=== PATIENT | female | born 1995 | race Caucasian/White ===

== ENCOUNTER → 2023-03-20 13:52 | Outpatient (BNVA) | payer OTHER, SELFPAY | PROVIDERS: Visit Provider Physician Assistant Surgical ==

== ENCOUNTER 2023-04-21 13:40 | Outpatient (AMB) | payer OTHER, SELFPAY ==
[2023-04-21 13:44] VITALS: BP 130/63; PULSE 80; TEMP 36.5; O2SAT 95; BMI 57.0
--- NOTE | 2023-04-21 13:44 | A.OFFVIS_ITS ---
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 Her goal is to be albe to do all of the activities that she wants to. She reports first being concerned about her weight during college. She has tried multiple methods of weight loss including different types of diets without permanent results. 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 Highest weight 396 lbs. She wakes at: 8am bed at 12- 1am Breakfast:skips 3d/ week. 10am - Premier shake OR sweet crackers. water Lunch: 1:30 pm - (food from school cafeteria) chicken or fish, small amt of vegetables with carb. water Dinner: 7pm - (from school cafterira) similar to lunch - or a sandwich. water After dinner: cheese and crackers, allmonds or yogurt Other snacks: no snacks during the day Liquids:No soda, no fruit juice Alcohol intake:once per month, 5 -6 drinks (wine or beer) tobacco:none, marijuana: none Exercise: walks dog on leash. has gym access at school. Last mammogram: never Last pap smear: up to date control method: condoms HARLEY: 0 ESS:5 GERD15: QOL:83 PFSH Surgical History Hx of wisdom tooth extraction Family History (Updated 03/20/23 @ 14:21 by Monica Sulewski, RMA) Mother Thyroid disease Father Cancer High cholesterol Hypertension Diabetes Sister No problems noted. Sister No problems noted. Brother Cirrhosis Social History Alcohol intake: current Alcohol intake frequency: a few times a month Patient Tobacco Use Status: Never used Tobacco Physical Exam Vital Signs: Last Vital Signs Temp 97.7 F 04/21/23 13:44 Pulse 80 04/21/23 13:44 BP 130/63 04/21/23 13:44 Pulse Ox 95 04/21/23 13:44 Oxygen Delivery Method Room Air 04/21/23 13:44 BMI result Body Mass Index 57.0 Const General: cooperative, no acute distress and well developed Nutritional Appearance: obese Orientation/consciousness: patient oriented x3 HEENT Head: Yes normal to inspection Neck Neck: Yes normal visual inspection Thyroid: Thyroid normal Resp Effort & Inspection: normal respiratory effort Auscultation: clear to auscultation bilaterally Cardio Rate: regular rate Rhythm: regular rhythm Heart sounds: S1 normal heart sound present, S2 normal heart sound present and no murmurs GI Inspection: No distended and Yes obesity Palpation (GI): Soft to palpation, nontender and no guarding Skin General skin exam: no rashes or lesions noted and other (warm and dry) Wounds: no wounds Hair: normal Neuro General: patient oriented x3 Extrem General: Yes no pedal edema and Yes no calf tenderness Psych Attitude: cooperative Thought process: Normal thought process present Thought content: Normal thought content present Insight: Good insight present (Psych) Judgement: Good judgement present (Psych) Assessment & Plan Assessment & Plan (1) Morbid obesity: Code(s): E66.01 - Morbid (severe) obesity due to excess calories Plan: This is a 27 yo woman with morbid obesity who will start SWL program to prepare for bariatric surgery. Blood work, h pylori , CXR, ECG, Abd ULS and UGI have been ordered. She is being scheduled for RD and CLAUDIA initial consultations. She will start SWL classes and watch at 3 classes before her next appt with Courtney. 1. Adequate sleep of 7-8 hours per night discussed 2. Healthy meal plan - stop skipping meals and stop all sweetened drinks All meals/MR's need to take 20 minutes to complete 10 am - 30 gram shake 1 pm - cc or yogurt 4 pm- shake 7 pm- dinner of 6 oz lean protein, 8 oz vegetable, 1 serving fruit 10 pm - bar Exercise - Cardio 5 d week walk 2 miles in 40 minutes - check calories burned on health tracker OR LS 2 mile videos, TBP once per week The importance of avoiding and breast feeding for at least 18 months after bariatric surgery was discussed in the information session and was reinforced today. Pt will purchase body composition analyzer (recommended list given to patient) and weight herself weekly. Next appt with me in 3 weeks. Text me with any questions and weekly weights. Patient is morbidly obese and is not considered stable at this time.?I spent a total of 60 minutes reviewing/updating records, examining the patient and counseling the patient on weight management as detailed above. Orders: Orders Vitamin B12 and Folate Today E66.01 - Morbid (severe) obesity due to excess calories, Z01.818 - Encounter for other preprocedural examination Comprehensive Met. Panel Today E66.01 - Morbid (severe) obesity due to excess calories, Z01.818 - Encounter for other preprocedural examination C Reactive Protein Today E66.01 - Morbid (severe) obesity due to excess calories, Z01.818 - Encounter for other preprocedural examination Ferritin Today E66.01 - Morbid (severe) obesity due to excess calories, Z01.818 - Encounter for other preprocedural examination Hemoglobin A1c Today E66.01 - Morbid (severe) obesity due to excess calories, Z01.818 - Encounter for other preprocedural examination Insulin Today E66.01 - Morbid (severe) obesity due to excess calories, Z01.818 - Encounter for other preprocedural examination IRON PROFILE Today E66.01 - Morbid (severe) obesity due to excess calories, Z01.818 - Encounter for other preprocedural examination Lipid Panel Today E66.01 - Morbid (severe) obesity due to excess calories, Z01.818 - Encounter for other preprocedural examination PTHI Today E66.01 - Morbid (severe) obesity due to excess calories, Z01.818 - Encounter for other preprocedural examination TSH reflex Free T4 Today E66.01 - Morbid (severe) obesity due to excess calories, Z01.818 - Encounter for other preprocedural examination Vitamin A Today E66.01 - Morbid (severe) obesity due to excess calories, Z01.818 - Encounter for other preprocedural examination Vitamin B1 Today E66.01 - Morbid (severe) obesity due to excess calories, Z01.818 - Encounter for other preprocedural examination Vitamin D 25-OH Total Today E66.01 - Morbid (severe) obesity due to excess calories, Z01.818 - Encounter for other preprocedural examination Zinc Today E66.01 - Morbid (severe) obesity due to excess calories, Z01.818 - Encounter for other preprocedural examination ECG 12 lead EKG Today E66.01 - Morbid (severe) obesity due to excess calories, Z01.818 - Encounter for other preprocedural examination FL upper GI w air Today E66.01 - Morbid (severe) obesity due to excess calories, Z01.818 - Encounter for other preprocedural examination Complete Blood Count Auto Diff Today E66.01 - Morbid (severe) obesity due to excess calories, Z01.818 - Encounter for other preprocedural examination H Pylori Breath Test Today E66.01 - Morbid (severe) obesity due to excess calories, Z01.818 - Encounter for other preprocedural examination US abdomen comp w elastography Today E66.01 - Morbid (severe) obesity due to excess calories, Z01.818 - Encounter for other preprocedural examination XR chest 2V Today E66.01 - Morbid (severe) obesity due to excess calories, Z01.818 - Encounter for other preprocedural examination Referrals Behavioral Health Referral E66.01 - Morbid (severe) obesity due to excess calories, Z01.818 - Encounter for other preprocedural examination Nutrition/Dietitian Referral E66.01 - Morbid (severe) obesity due to excess calories, Z01.818 - Encounter for other preprocedural examination Coding Level of Care Code New Pt Level 5 (10472) Diagnoses Morbid obesity E66.
== END 2023-04-21 14:51 | disposition home or self-care (01) ==
PROVIDERS: Visit Provider Physician Assistant
DX: E66.01 Morbid (severe) obesity due to excess calories (principal); Z68.43 Body mass index [BMI] 50.0-59.9, adult
CPT/HCPCS: 99205

== ENCOUNTER 2023-04-21 13:40 | Outpatient (REF) | payer OTHER, SELFPAY ==
[2023-04-26 12:42] LABS: H Pylori Breath Test Negative (Negative)
== END 2023-04-21 13:41 | disposition home or self-care (01) ==
LOC: HO.LNP 13:40
PROVIDERS: Visit Provider Physician Assistant
DX: Z01.818 Encounter for other preprocedural examination (principal); E66.01 Morbid (severe) obesity due to excess calories
CPT/HCPCS: 83013; 99211

== ENCOUNTER 2023-05-11 09:17 | Outpatient (REF) | payer OTHER, SELFPAY ==
--- NOTE | ~2023-05-11 | XR_ITS ---
EXAMINATION: XR CHEST CLINICAL INFORMATION: Morbid obesity. COMPARISON: None available. TECHNIQUE: 2 views of the chest were obtained. FINDINGS: No significant abnormality is noted involving the heart, lungs, mediastinum, bony thorax or soft tissues. XR/XR chest 2V IMPRESSION: Unremarkable examination.
--- NOTE | 2023-05-11 09:27 | ECG_ITS ---
Test Reason : E66.01 Blood Pressure : / mmHG Vent. Rate : 081 BPM Atrial Rate : 081 BPM P-R Int : 162 ms QRS Dur : 084 ms QT Int : 362 ms P-R-T Axes : 036 004 028 degrees QTc Int : 420 ms Normal sinus rhythm Normal ECG No previous ECGs available Referred By: Grace Porter Electronically Signed By:CHICO BECKMAN
[2023-05-11 09:41] LABS: MANUAL DIFF FLAG NO
[2023-05-11 10:20] LABS: Basophils Percent Auto 0.3 % (0-2); Eosinophils Absolute Auto 0.1 X10*3/uL (0.0-0.4); Eosinophils Percent Auto 0.8 % (0-4); Hematocrit 40.5 % (37.0-47.0); Hemoglobin 12.9 g/dl (12.0-16.0); Imm Gran Abs Auto 0.02 X10*3/uL (0.00-0.03); Imm Gran Pct Auto 0.3 % (0.0-0.4); Lymphocytes Absolute Auto 3.1 X10*3/uL (1.2-4.9); Mean Corpuscular HGB Conc 31.9 g/dl (31.0-35.0); Mean Corpuscular Hemoglobin 25.9 pg (27.0-33.0); Mean Corpuscular Volume 81.2 fL (80.0-98.0); Mean Platelet Volume 10.7 fL (9.4-12.3); Monocytes Absolute Auto 0.5 X10*3/uL (0.1-1.2); Monocytes Percent Auto 7.1 % (2-11); Neutrophils Absolute Auto 2.8 x10*3/uL (2.0-8.3); Neutrophils Percent Auto 43.5 % (45-73); Platelet Count 332 X10*3/uL (160-400); Red Blood Count 4.99 X10*6/uL (4.20-5.50); Red Cell Distribution Width 13.7 % (11.0-16.0); White Blood Count 6.5 X10*3/uL (4.8-10.8)
[2023-05-11 10:59] LABS: Alanine Aminotransferase 28 U/L (0-31); Albumin Level 4.1 g/dL (3.5-5.0); Alkaline Phosphatase 104 U/L (39-117); Anion Gap 18 (12-20); Aspartate Amino Transferase 21 U/L (5-31); Bilirubin Total 0.4 mg/dL (0.0-1.0); Blood Urea Nitrogen 19 mg/dL (9-16); Calcium 9.4 mg/dL (8.4-10.2); Carbon Dioxide 18 mmol/L (22-29); Chloride 106 mmol/L (96-108); Cholesterol 201 mg/dL; Estimated Glomerular Filt Rate > 60; Glucose Random 92 mg/dL (60-115); HDL Cholesterol 37 mg/dL; Iron 79 mcg/dL (30-160); LDL Cholesterol Calculated 126 mg/dl; Percent Iron Saturation 23 % (15-50); Sodium 138 mmol/L (135-145); Total Iron Binding Capacity 350 mcg/dL (228-428); Total Protein 7.9 g/dL (6.5-8.0); Triglycerides 193 mg/dL; Unsaturated Iron Binding 271 ug/dL
[2023-05-11 11:08] LABS: Ferritin 72 ng/mL (10-122); Insulin 16 uU/mL (2-29); TSH reflex Free T4 5.07 uIU/mL (0.32-4.0); Vitamin D 25-OH Total 27.5 ng/mL (>30)
[2023-05-11 11:09] LABS: Estimated Average Glucose 94 mg/dL; Hemoglobin A1c % 4.9 %
[2023-05-11 11:16] LABS: Folate 10.8 ng/mL (> or = 4.0); Vitamin B12 523 pg/mL (200-900)
[2023-05-11 11:39] LABS: Free T4 (Free Thyroxine) 0.83 ng/dL (0.71-1.85)
[2023-05-12 19:04] LABS: Calcium (PTHI) 9.2 mg/dL (8.6-10.2); PTHI 72 pg/mL (16-77)
[2023-05-14 01:58] LABS: Zinc 81 mcg/dL (60-130)
[2023-05-14 16:13] LABS: Vitamin B1 7 nmol/L (8-30)
[2023-05-15 03:03] LABS: Vitamin A 56 mcg/dL (38-98)
== END 2023-05-11 09:18 | disposition home or self-care (01) ==
LOC: HO.XRAY 09:17
PROVIDERS: Visit Provider Physician Assistant
DX: Z01.818 Encounter for other preprocedural examination (principal); E66.01 Morbid (severe) obesity due to excess calories
CPT/HCPCS: 36415; 71046; 80053; 80061; 82306; 82607; 82728; 82746; 83036; 83525; 83540; 83970; 84425; 84439; 84443; 84590; 84630; 85025; 86140; 93005

== ENCOUNTER → 2023-05-11 09:27 | Outpatient (BNV) | payer OTHER, SELFPAY | PROVIDERS: Visit Provider Internal Medicine | DX: E66.01 Morbid (severe) obesity due to excess calories (principal) | CPT/HCPCS: 93010 ==

== ENCOUNTER 2023-05-12 08:30 | Outpatient (REF) | payer OTHER, SELFPAY ==
--- NOTE | ~2023-05-12 | US_ITS ---
EXAMINATION: US COMPLETE ABDOMEN WITH LIVER ELASTOGRAPHY CLINICAL INFORMATION: Morbid obesity COMPARISON: None available. TECHNIQUE: Real-time imaging of the abdominal viscera. Noninvasive ultrasound liver fibrosis assessment is performed using Tyler ElastPQ point quantification shear wave elastography (2D-SWE) with a C5-2 MHz transducer. Multiple elastography samples are obtained. FINDINGS: PANCREAS: Normal. The visualized pancreatic head and body are normal in appearance. The remainder of the pancreas is obscured from visualization by the overlying bowel gas. ABDOMINAL AORTA: The proximal, middle, and distal aortic segments are normal in caliber. INFERIOR VENA CAVA: Visualized portions are normal. LIVER: There is hepatomegaly present with vertical span of the right lobe of 20 cm. There is diffuse increased echogenicity consistent with fatty infiltration/hepatocellular disease. The right lobe measures 20 cm in length. The left lobe measures 14 cm in length. Portal flow is hepatopedal Shear wave liver elastography median stiffness is 1.64 m/s (reference: normal median stiffness is 1.3 m/s or less). IQR/median stiffness to assess sampling precision is 0.09 (reference: good quality data set is IQR/median stiffness of 0.15 or less). GALLBLADDER: Normal. The gallbladder is physiologically distended without evidence of stones, sludge, polyps, wall thickening or pericholecystic fluid. COMMON BILE DUCT: Common bile duct is not well seen due to body habitus and overlying bowel gas RIGHT KIDNEY: Normal. No hydronephrosis. No renal calculi or focal parenchymal lesions. The kidney measures 13 cm in maximum dimension. LEFT KIDNEY: Normal. No hydronephrosis. No renal calculi or focal parenchymal lesions. The kidney measures 10 cm in maximum dimension. SPLEEN: Normal. The spleen measures 11.5 cm in maximum dimension. FREE FLUID: None. US/US abdomen comp w elastography IMPRESSION: 1. Increased echogenicity consistent with fatty infiltration/hepatocellular disease of the liver. 2. Liver elastography: In the absence of other known clinical signs, measurements rule out compensated advanced chronic liver disease. If there are known clinical signs, further testing may be needed for confirmation. REFERENCE: Society of Radiologists in Ultrasound Liver Stiffness Thresholds (2020): LIVER STIFFNESS THRESHOLDS: *Liver Stiffness equal or less than 1.3 m/s: High probability of being normal. *Liver Stiffness less than 1.7 m/s: In the absence of other known clinical signs, rules out compensated advanced chronic liver disease. *Liver Stiffness 1.7-2.1 m/s: Suggestive of compensated advanced chronic liver disease but need further test for confirmation. *Liver Stiffness over 2.1 m/s: Rules in compensated advanced chronic liver disease. *Liver Stiffness over 2.4 m/s: Suggestive of clinically significant portal hypertension. QUALITY OF DATA SET: *IQR/Median value equal or less than 0.15 implies a quality data set. *IQR/Median value over 0.15 implies a poor quality data set. SIGNIFICANT CHANGE FROM PRIOR EXAM: Significant change if liver stiffness measurement is 10% or greater from prior exam. OTHER CONSIDERATIONS: The stage of liver fibrosis may be overestimated in the setting of acute hepatitis, liver inflammation, elevated liver function tests, hepatic vascular congestion, obstructive cholestasis, non-fasting state, and infiltrative diseases such as amyloidosis and lymphoma. In some patients with NAFLD, the liver stiffness thresholds for compensated advanced chronic liver disease may be lower. In causes other than viral hepatitis and NAFLD, liver stiffness thresholds are not well established.
== END 2023-05-12 08:31 | disposition home or self-care (01) ==
LOC: HO.US 08:30
PROVIDERS: Visit Provider Physician Assistant
DX: Z01.818 Encounter for other preprocedural examination (principal); E66.01 Morbid (severe) obesity due to excess calories
CPT/HCPCS: 76705; 76981; 97802

== ENCOUNTER 2023-05-12 14:24 | Outpatient (AMB) | payer OTHER, SELFPAY ==
--- NOTE | 2023-05-12 14:19 | A.OFFVIS_ITS ---
Intake Intake Visit Reasons: (TV) Initial Nutrition [facility] Floor Framer Required: No Allergies No Known Allergies Allergy (Verified 04/21/23 13:48) HPI Nutrition Presentation Reason for consult elevated BMI Diet Assmnt Details Hasnt been consistent with her nutrition plan. Had a lot of groceries in the fridge and didn't want them to be wasted. She was trying to eat during the day and not skip meals, and make healthy choices. started her plan on May 07 and bought the shakes. Using 2 premier or farilife shakes, 1 Quest bar, 1 malay yogurt , 1 meal Exercise: 3-4x per week [facility] online classes: 01/17 completed , scoring well Dietary counseling reduction Who buys your food self Who prepares/cooks your food self Meal frequency regular: lunch ( huge meal ) and snacks and never: breakfast and dinner Lifestyle Food frequency Grains/pasta/breads/cereal (carbs): daily and Desserts/sweets: occasionally Diagnosis Nutrition problem #1 overweight/obesity As related to (etiology) #1 excess energy intake and physical inactivity As evidenced by (sign/symptom) #1 high BMI Monitoring/Goals Nutrition problem monitoring total energy intake, level of knowledge/skill, total PRO intake, total CHO intake and weight Outcome progress progressing Learning/Education Readiness to learn good Stages of change action Educational materials provided Yes Most Recent Diabetes Results: Cholesterol 201 mg/dL 05/11/23 HDL Cholesterol 37 mg/dL 05/11/23 Triglycerides 193 mg/dL 05/11/23 Creatinine 0.76 mg/dL (0.5-1.4) 05/11/23 Blood Urea Nitrogen 19 mg/dL (9-16) H 05/11/23 Sodium 138 mmol/L (135-145) 05/11/23 Potassium 4.0 mmol/L (3.3-5.1) 05/11/23 Chloride 106 mmol/L (96-108) 05/11/23 Carbon Dioxide 18 mmol/L (22-29) L 05/11/23 Calcium 9.4 mg/dL (8.4-10.2) 05/11/23 AST 21 U/L (5-31) 05/11/23 ALT 28 U/L (0-31) 05/11/23 Total Protein 7.9 g/dL (6.5-8.0) 05/11/23 Albumin 4.1 g/dL (3.5-5.0) 05/11/23 PFSH Surgical History Hx of wisdom tooth extraction Family History (Updated 03/20/23 @ 14:21 by RYLAND Amador) Mother Thyroid disease Father Cancer High cholesterol Hypertension Diabetes Sister No problems noted. Sister No problems noted. Brother Cirrhosis Social History Alcohol intake: current Alcohol intake frequency: a few times a month Patient Tobacco Use Status: Never used Tobacco Assessment & Plan Assessment & Plan (1) Morbid obesity: Code(s): E66.01 - Morbid (severe) obesity due to excess calories Patient Instructions: has been only following her plan for a few days, no changes made. she will follow up 06/17 2pm Telehealth Telehealth Location of provider rendering services: practice address Location of patient: address on file Patient Identification confirmed using: Name, : Yes Telehealth method: voice only Patient verbally consented to treatment: Yes Patient verbally consented to billing insurance company: Yes Patient informed of any privacy concerns related to visit: Yes Minutes spent on Phone/Video with Pt.: 30 Coding Level of Care Code Nutr Indiv Intake (49662) Diagnoses Morbid obesity E66.01 Time Spent (min) 30
== END 2023-05-12 15:00 | disposition home or self-care (01) ==
LOC: HO.HBS 14:24
PROVIDERS: Visit Provider Dietitian, Registered
DX: E66.01 Morbid (severe) obesity due to excess calories (principal)

== ENCOUNTER 2023-05-14 15:28 | Outpatient (AMB) | payer OTHER, SELFPAY ==
--- NOTE | 2023-05-14 15:31 | MHC.OFFVISWM ---
Intake VS Expanded 05/14/23 15:37 Height 5 ft 7 in Weight 259 lb BMI 40.6 BP 138/74 Blood Pressure Location Rt brachial Blood Pressure Position Sitting Pulse 90 Pulse Source Pulse Oximeter Temp 97.0 F Temperature Source Temporal Artery Scan Pulse Oximetry 96 Oxygen Delivery Method Room Air Body Fat 188.2 Body Fat Percentage 52.5 Free Fat Mass 170.6 Muscle Mass 162.0 Visceral Mass 18.0 Water Mass 122.6 BMR 2,548 Intake Visit Reasons: (OV) F/U SWL Allergies No Known Allergies Allergy (Verified 05/14/23 15:36) HPI HPI Comments History of Present Illness Details This is the patients second appt for SWL. Starting weight was 364 lbs on 04/21/23, started meal plan 2 weeks later. TBWL is lbs or % TBWL. Meal plan: started 1 week ago. wakes up at 6am 8am - Premier or Fairlife shake - over 30 minutes 10- 10:30 am- Quest bar 12:30 pm - shake 3pm -was having almonds - now has yogurt or cc 6:30 pm- chicken with vegetables 8:30 - cc Exercise plan:now 4 d/wk LS 2 miles over 300 calories only once. Walking - 500 calories. Pre op work up completed as follows: SWL classes - 01/17 appts - Sachi 05/22 appts - follow up 06/17 H pylori -negative Labs - TSH 5----, free T4 normal , willcontact PCP CXR - not read yet ECG - normal ULS - fatty liver R 20/L 14 - hepatomegaly UGI - 06/29 [facility] Surgical History Hx of wisdom tooth extraction Family History Mother Thyroid disease Father Cancer High cholesterol Hypertension Diabetes Sister No problems noted. Sister No problems noted. Brother Cirrhosis Social History Alcohol intake: current Alcohol intake frequency: a few times a month Patient Tobacco Use Status: Never used Tobacco Assessment & Plan Assessment & Plan (1) Morbid obesity: Code(s): E66.01 - Morbid (severe) obesity due to excess calories Plan: TBWL 5 lb sover the last week. She has made many changes and is still adjusting to her new meal plan. No chnages made. We discussed how after awhile she will decrease her MR's per day. Exercise - now LS 2 miles 3 d/week(she rock more calories and fat with this) and walking at least 2 d/week All upcoming appts reviewed, next appt with me in 3 weeks. Patient is morbidly obese and is not considered stable at this time. I spent 30 minutes in total with patient reviewing/updating records, examining the patient and counseling the patient on weight management as detailed above. (2) Steatosis, liver: Code(s): K76.0 - Fatty (change of) liver, not elsewhere classified Coding Level of Care Code Est Pt Level 4 (87230) Diagnoses Morbid obesity E66.01 Steatosis, liver K76.0
[2023-05-14 15:37] VITALS: BP 138/74; PULSE 90; TEMP 36.1; O2SAT 96; BMI 40.6
== END 2023-05-14 16:09 | disposition home or self-care (01) ==
PROVIDERS: Visit Provider Physician Assistant
DX: E66.01 Morbid (severe) obesity due to excess calories (principal); K76.0 Fatty (change of) liver, not elsewhere classified
CPT/HCPCS: 99214

== ENCOUNTER → 2023-05-14 15:28 | Outpatient (BNVA) | payer OTHER, SELFPAY | PROVIDERS: Visit Provider Physician Assistant ==

== ENCOUNTER 2023-06-08 15:00 | Outpatient (AMB) | payer OTHER, SELFPAY ==
--- NOTE | 2023-06-08 14:59 | A.OFFVIS_ITS ---
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 Was hungry at first , but no longer. TBWL 15 lbs 4.1%. Meal plan: 8:30 am - shake 12:30 pm - protein and veg 3 -4 pm - protein bar 6:30 - shake Exercise - one week did not exercise - and only lost 2 lbs. LS 2 miles - 2 d/week. Walks for 45 minutes about 2.5 miles. Pre op work up completed as follows: [facility] classes -? 01/17 appts ? - Sachi 05/22 ? - no appt yet, rescheduled for 06/17 RD appts? - follow up 06/17 H pylori -negative Labs - TSH 5, free T4 normal , will contact PCP, now waiting for appt. CXR - normal ECG - normal ULS - fatty liver R 20/L 14 - hepatomegaly UGI - 06/29 PFSH Surgical History Hx of wisdom tooth extraction Family History Mother Thyroid disease Father Cancer High cholesterol Hypertension Diabetes Sister No problems noted. Sister No problems noted. Brother Cirrhosis Social History Alcohol intake: current Alcohol intake frequency: a few times a month Patient Tobacco Use Status: Never used Tobacco Assessment & Plan Assessment & Plan (1) Morbid obesity: Code(s): E66.01 - Morbid (severe) obesity due to excess calories Plan: Progressing well with 15 lbs or 4% TBWL lost. No changes needed to meal plan. 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 We discussed that she runs the risk of weight gain during that time. Will continue this conversation with her. Next appt with me in 3 weeks, all upcoming appts reviewed with patient. Patient is still morbidly obese and is not considered stable at this time. I spent 30 minutes in total speaking with the patient via video conference counseling , reviewing records and charting in patients chart. . (2) Steatosis, liver: Code(s): K76.0 - Fatty (change of) liver, not elsewhere classified Telehealth Telehealth Location of provider rendering services: practice address Location of patient: address on file Patient Identification confirmed using: Name, : Yes Telehealth method: video Patient verbally consented to treatment: Yes Patient verbally consented to billing insurance company: Yes Patient informed of any privacy concerns related to visit: Yes Coding Level of Care Code Tele Est Pt Level 4 (04126) Diagnoses Morbid obesity E66.01 Steatosis, liver K76.0
[2023-06-08 15:04] VITALS: BMI 54.7
== END 2023-06-08 15:25 | disposition home or self-care (01) ==
LOC: HO.HBS 15:21
PROVIDERS: Visit Provider Physician Assistant
DX: E66.01 Morbid (severe) obesity due to excess calories (principal); Z68.43 Body mass index [BMI] 50.0-59.9, adult; K76.0 Fatty (change of) liver, not elsewhere classified
CPT/HCPCS: 99214

== ENCOUNTER → 2023-06-08 15:00 | Outpatient (BNVA) | payer OTHER, SELFPAY | PROVIDERS: Visit Provider Physician Assistant ==

== ENCOUNTER 2023-06-17 12:00 | Outpatient (AMB) | payer OTHER, SELFPAY ==
--- NOTE | 2023-06-17 12:10 | A.OFFWM_ITS ---
Intake Intake Visit Reasons: VIDEO BH Intake Allergies No Known Allergies Allergy (Verified 05/14/23 15:36) PFSH Surgical History Hx of wisdom tooth extraction Family History Mother Thyroid disease Father Cancer High cholesterol Hypertension Diabetes Sister No problems noted. Sister No problems noted. Brother Cirrhosis Social History Alcohol intake: current Alcohol intake frequency: a few times a month Patient Tobacco Use Status: Never used Tobacco Behavioral Health Assessment Weight Management Therapy Therapy Notes Details PT is a 27 year old, female, who presents for initial behavioral health assessment as part of surgical weight-loss program. PT denied any history of serious or complex mental health issues and /or past hospitalization/crisis for behavioral health. Denies any safety concerns around SI and/or self-other harm, also there is no history of substance use reported. There is also no evidence for stress/emotional-eating, and scores from BES suggest low risk for binge eating behavior. PHQ- scores also showed no active symptoms/concerns with depression. Mental status exam is withing normal limits, suggesting person's functioning is not impaired. At this time patient is cleared from the behavioral health standpoint but will be seen again for support. Presenting Concerns Referral Source [facility]MP Provider. PT sees Grace NELSON Reason for referral Completion of behavioral health assessment as part of process for weight-loss surgery. Precipitating Event Obesity. When Covid happened she got concerned as she was in a higher risk due to her weight. 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 No Satisfied with current living situation? Yes Comments Been in this current living situation for about 2 and a haldf years. Food/Weight/Diet Expectations of change PT reports she doesn't have a number on mind in terms of how much she wants to weight. She wants to be healthy and able to do things. History/Relationship with food Pt denies any concerns related to emotional eating. She believes her issues is skipping meals and then having only 1 big meals or eating very late, not really having steady meal schedule. Example of meals before starting program Breakfast: skip. Lunch: whatever was offered at the cafeteria with dessert and coffee. For example: 2 slices of pizza, some veggies, a brownie, coffee. Dinner: [place] or anything high in carbs. snacks: popcorn or a bagel with cream cheese at night. Not a soda drinker, good at drinking water. History/Relationship with weight PT reports she was at a healthy weight until about age 14, when she was 20 or 30Lbs overweight. At age 21 she was 220Lbs. In 2019 at age 24, her highest was 396Lbs, she was able to lost 20-30Lbs in 2020. History/Relationship with dieting Went to a [facility] in 2019 in [place] but didn't move forward with surgery. She has done better with diets, but struggle exercising as she doesn't enjoys exercise. For her exercise was seen as a punishment, which made it not an enjoyable activity. Binge Eating Do you frequently eat large amounts of food in short periods of time, not feeling physically hungry? No Do you feel out of control when you eat a large amount of food in a short period of time? Yes Do you eat large amounts of food rapidly and typically alone? Yes Night Eating Do you wake up at least once during the night to eat? No If you wake up in the night, do you find that it is necessary to eat something in order to fall back asleep? No Do you have little or no appetite in the morning and feel very hungry in the evening, often overeating between dinner and when you go to bed? Yes Social History Family history and relationship Pt is single, has no children. Dad in 2020, mom is alive in [place]. She has 3 siblings, she's the youngest. PT reports having good family relationships. 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 Developmental history and status None reported. Social support Mother, a sister who is a physician. Community support None reported. Mosque/Spirituality Raised as Mosque but she doesn't practice. Cultural/Ethnic information Pt is from [place]. Pt is bilingual. Legal Involvement and History Current or historical involvement with the legal system? None. Education Highest grade completed Master's degree. Preferred learning style Auditory and Written Currently enrolled in educational program? No Interested in further educational program? No Educational Interests/Skills Teaching, leadership, organized. 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 ) Wants help to find employment? No Meaningful activities Reading, watching TV. Financial Situation Describe current financial situation Comfortable and Occasional struggle Financial assistance? None Service Service? No Mental Health and Addiction Treatment Current/Past substance abuse? No Current/Past addictive behavior concerns? No Psychiatric history -PT went to therapy at age 15 for couple months due to isolation and stress, as her mom was concerned and wanted to prevent any serious issues. -Then in 2019 saw a therapist for a few months due to symptoms of depression due to high stress. -Never been in Psych meds and never hosp italized. - Denies any SI or self-harm concerns. Medical and Physical Health Summary Additional Medical History not covered in history None reported. Sexual History concerns None reported. Physical exam in the last year? No Pain Screening Current pain? Yes (Left foot pain.) Pain in the last few months? No Medications Is the patient compliant with medications? Not applicable Does the patient have Linn Guardian in place? Not applicable Does the patient use complimentary health approaches? No Trauma/Abuse History History of trauma? No Questionnaires PHQ-9 Over the last 2 weeks, how often have you been bothered by any of the following problems? 1. Little interest or pleasure in doing things: several days 2. Feeling down, depressed, or hopeless: not at all 3. Trouble falling or staying asleep, or sleeping too much: more than half the days 4. Feeling tired or having little energy: several days 5. Poor appetite or overeating: several days 6. Feeling bad about yourself - or that you are a failure or have let yourself or your family down: not at all 7. Trouble concentrating on things, such as reading the newspaper or watching television: not at all 8. Moving or speaking so slowly that other people could have noticed. Or the opposite - being so fidgety or restless that you have been moving around a lot more than usual: not at all 9. Thoughts that you would be better off or of hurting yourself in some way: not at all Total score: 5 Depression Screening Interpretation: Negative Source: Developed by Drs. Boogie Chapin, Sanam Gerard, See Nicole and colleagues, with an educational patel from [employer]. Binge Eating Scale Group 1 A. I don't feel self-conscious about my wt. or body size when I'm with others. B. I feel concerned about how I look to others, but it normally does not make me fell disappointed with myself C. I do get self-conscious about my appearance and wt. which makes me feel disappointed in myself. D. I feel very self-conscious about my wt. and frequently I feel intense shame and disgust for myself. I try to avoid social contacts because of my self- consciousness. Response Group 1: B Group 2 A. I don't have any difficulty eating slowly in the proper manner. B. Although I seem to gobble down foods, I don't end up feeling stuffed because of eating to much. C. At times, I tend to eat quickly and then, I feel uncomfortably full afterwards. D. I have the habit of bolting down my food, without really chewing it. When this happens I usually feel uncomfortably stuffed because I've eaten to much. Response Group 2: C Group 3 A. I feel capable to control my eating urges when I want to. B. I feel like I have failed to control my eating more than the average person. C. I feel utterly helpless when it comes to feeling in control of my eating urges. D. Because I feel so helpless about controlling my eating I have become very desperate about trying to get control. Response Group 3: B Group 4 A. I don't have the habit of eating when I'm bored. B. I sometimes eat when I'm bored, but often I'm able to get busy and get my mind off food. C. I have a regular habit of eating when I'm bored, but occasionally, I can use some other activity to get my mind off eating. D. I have a strong habit of eating when I'm bored. Nothing seems to help me breath the habit. Response Group 4: C Group 5 A. I'm usually physically hungry when I eat something. B. Occasionally, I eat something on impulse even though I really am not hungry. C. I have the regular habit of eating foods, that I might not really enjoy, to satisfy a hungry feeling even though physically, I don't need the food. D. Although I'm not physically hungry, I get a hungry feeling in my mouth that only seems to be satisfied when I eat a food, like sandwich, that fills my mouth. Sometimes, when I eat the food to satisfy my mouth hunger, I then spit the food out so I won't gain weight. Response Group 5: B Group 6 A. I don't feel any guilt or self-hate after I overeat. B. After I overeat, occasionally I feel guilt or self-hate. C. Almost all the time I experience strong guilt or self-hate after I overeat. Response Group 6: B Group 7 A. I don't lose total control of my eating when dieting even after periods when I overeat. B. Sometimes when I eat a forbidden food on a diet, I feel like I blew it and eat even more. C. Frequently, I have the habit of saying to myself, I've blown it now, why not go all the way, when I overeat on a diet. When that happens I eat more. D. I have a regular habit of starting a strict diets for myself but I break the diets by going on an eating binge. My life seems to be either a feast or famine. Response Group 7: C Group 8 A. I rarely eat so much food that I feel uncomfortably stuffed afterwards. B. Usually about once a month, I each such a quantity of food, I end up feeling very stuffed. C. I have regular periods during the month when I eat large amounts of food, either at mealtime or at snacks. D. I eat so much food that I regularly feel quite uncomfortable after eating and sometimes a bit nauseous. Response Group 8: B Group 9 A. My level of calorie intake does not go up very high or go down very low on a regular basis. B. Sometimes after I overeat, I will try to reduce my caloric intake to almost nothing to compensate for the excess calories I've eaten. C. I have a regular habit of overeating during the night. It seems that my routine is not to be hungry in the morning but overeat in the evening. D. In my adult years, I have had week-long periods where I practically starve myself. This follows periods when I overeat. It seems I live a life of either feast or famine. Response Group 9: B Group 10 A. I usually am able to stop eating when I want to. I know when enough is enough. B. Every so often, I experience a compulsion to eat which I can't seem to control. C. Frequently, I experience strong urges to eat which I seem unable to control, but at other times I can control my eating urges. D. I feel incapable of controlling urges to eat. I have a fear of not being able to stop eating voluntarily. Response Group 10: C Group 11 A. I don't have any problem stopping eating when I feel full. B. I usually can stop eating when I feel full but occasionally overeat leaving me feeling uncomfortably stuffed. C. I have a problem stopping eating once I start and usually I feel uncomfortably stuffed after I eat a meal. D. Because I have a problem not being able to stop eating when I want, I sometimes have to induce vomiting to relieve my stuffed feeling. Response Group 11: B Group 12 A. I seem to eat just as much when I'm with others, Family social gatherings as when I'm by myself. B. Sometimes, when I'm with other persons, I don't eat as much as I want to eat because I'm self-conscious about my eating. C. Frequently, I eat only a small amount of food when others are present, because I'm very embarrassed about my eating. D. I feel so ashamed about overeating that I pick times to overeat when I know no one will see me. I feel like a closet eater. Response Group 12: B Group 13 A. I eat three meals a day with only an occasional between meal snack. B. I eat 3 meals a day, but I also normally snack between meals. C. When I am snacking heavily, I get in the habit of skipping regular meals. D. There are regular periods when I seem to be continually eating, with no planned meals. Response Group 13: A Group 14 A. I don't think much about trying to control unwanted eating urges. B. At least some of the time, I feel my thoughts are pre-occupied with trying to control my eating urges. C. I feel that frequently I spend much time thinking about how much I ate or about trying not to eat anymore. D. It seems to me that most of my waking hours are pre-occupied by thoughts about eating or not eating. I feel like I'm constantly struggling not to eat. Response Group 14: A Group 15 A. I don't think about food a great deal. B. I have strong craving for food but they last only for brief periods of time. C. I have days when I can't seem to think about anything else but food. D. Most of my days seem to be pre-occupied with thoughts about food. I feel like I live to eat. Response Group 15: B Group 16 A. I usually know whether or not I'm physically hungry. I take the right portion of food to satisfy me. B. Occasionally, I feel uncertain about knowing whether or not I'm physically hungry. A these times it's hard to know how much food I should take to satisfy me. C. Even though I might know how many calories I should eat, I don't have any idea what is a normal amount of food for me. Response Group 16: B Binge Eating Score: 18 Score less than 17 Minimal Risk Score between 18-26 Moderate Risk Score between 27-46 High Risk Assessment & Plan Assessment & Plan (1) Eating disorder: Code(s): F50.9 - Eating disorder, unspecified Qualifiers: Eating disorder type: unspecified eating disorder Qualified Code(s): F50.9 - Eating disorder, unspecified (2) Adjustment disorder, unspecified: Code(s): F43.20 - Adjustment disorder, unspecified Qualifiers: Adjustment disorder type: unspecified type Qualified Code(s): F43.20 - Adjustment disorder, unspecified Plan PT is Cleared from the mental health standpoint. Advised to have support from the county agricultural agent and provider with food choices in order to continue having steady, well balanced meals to manage night hunger. We will f/up in a month for support with habit building. Telehealth Telehealth Location of provider rendering services: other Location of patient: address on file Patient Identification confirmed using: Name, : Yes Telehealth method: video Patient verbally consented to treatment: Yes Patient verbally consented to billing insurance company: Yes Patient informed of any privacy concerns related to visit: Yes Minutes spent on Phone/Video with Pt.: 60 Coding Level of Care Code New Pt Tele Psy Diag Cyndie ([id number]) Patient Type New Diagnoses Eating disorder, unspecified type F50.9 Eating disorder type: unspecified eating disorder Adjustment disorder, unspecified type F43.20 Adjustment disorder type: unspecified type Time Spent (min) 60
== END 2023-06-17 13:00 | disposition home or self-care (01) ==
LOC: HO.HBST 12:11
PROVIDERS: Visit Provider Counselor Mental Health
DX: F50.9 Eating disorder, unspecified (principal); F43.20 Adjustment disorder, unspecified
CPT/HCPCS: 90791

== ENCOUNTER → 2023-06-17 12:00 | Outpatient (BNVA) | payer OTHER, SELFPAY | PROVIDERS: Visit Provider Counselor Mental Health | DX: E66.9 Obesity, unspecified (principal); Z68.43 Body mass index [BMI] 50.0-59.9, adult; Z71.3 Dietary counseling and surveillance | CPT/HCPCS: 97803 ==

== ENCOUNTER 2023-06-29 08:14 | Outpatient (REF) | payer OTHER, SELFPAY ==
--- NOTE | ~2023-06-29 | FL_ITS ---
EXAMINATION: XR FLUOROSCOPY UPPER GI WITH AIR CLINICAL INFORMATION: Obesity COMPARISON: None available. TECHNIQUE: Upper GI was performed using thin and thick barium and effervescent granules FINDINGS: Esophageal motility is normal. There is mild gastroesophageal reflux. No hernia is seen. The stomach and duodenum are normal-appearing. No fold thickening, mass, ulcer or stricture. FLUOROSCOPY TIME: 21 seconds Total dose 15 mgy. 23 saved fluoroscopic images) FL/FL upper GI w air IMPRESSION: Mild gastroesophageal reflux.
== END 2023-06-29 08:15 | disposition home or self-care (01) ==
LOC: HO.XRAY 08:14
PROVIDERS: Visit Provider Physician Assistant
DX: Z01.818 Encounter for other preprocedural examination (principal); E66.01 Morbid (severe) obesity due to excess calories
CPT/HCPCS: 74246

== ENCOUNTER → 2023-06-29 08:14 | Outpatient (BNV) | payer OTHER, SELFPAY | PROVIDERS: Visit Provider Radiology Diagnostic Radiology | DX: E66.9 Obesity, unspecified (principal) | CPT/HCPCS: 74246 ==

== ENCOUNTER 2023-07-01 15:30 | Outpatient (AMB) | payer OTHER, SELFPAY ==
--- NOTE | 2023-07-01 15:37 | MHC.OFFVISWM ---
Intake VS Expanded 07/01/23 15:41 Height 5 ft 7 in Weight 341 lb BMI 53.4 Intake Visit Reasons: (tv) F/U SWL Allergies No Known Allergies Allergy (Verified 05/14/23 15:36) HPI HPI Comments History of Present Illness Details SWL follow up. 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 She has noticed that she is no longer coughing and having reflux symptoms. Pre op work up completed as follows: SWL classes -? 01/17 BH appts ? - [facility] 05/22 ? - no appt yet, rescheduled for 06/17, cleared RD appts? - follow up 06/17, cleared H pylori -negative Labs - TSH 5, free T4 normal , will contact PCP, now waiting for appt. CXR - normal ECG - normal ULS - fatty liver R 20/L 14 - hepatomegaly UGI - mild reflux only PFSH Surgical History Hx of wisdom tooth extraction Family History Mother Thyroid disease Father Cancer High cholesterol Hypertension Diabetes Sister No problems noted. Sister No problems noted. Brother Cirrhosis Social History Alcohol intake: current Alcohol intake frequency: a few times a month Patient Tobacco Use Status: Never used Tobacco Assessment & Plan Assessment & Plan (1) Morbid obesity: Code(s): E66.01 - Morbid (severe) obesity due to excess calories Plan: Great progress with 23 lbs or 6.3% TBWL and pre op work up completed. She will postpone LSG until September when she will have her break from work over winter vacation. No changes to meal plan other than making sure she is having 2 shakes, 1 meal and 1 MR per day. Exercise- increase to 3 d 2 miles LS, and 2 d 3 miles LS (still does not feel ready for TBP yet). Next appt 4 weeks, encouraged to text me weekly. Patient is still morbidly obese and is not considered stable at this time. I spent 30 minutes in total speaking with the patient via video conference counseling , reviewing records and charting in patients chart. . (2) Elevated TSH: Code(s): R79.89 - Other specified abnormal findings of blood chemistry Telehealth Telehealth Location of provider rendering services: practice address Location of patient: address on file Patient Identification confirmed using: Name, : Yes Telehealth method: video Patient verbally consented to treatment: Yes Patient verbally consented to billing insurance company: Yes Patient informed of any privacy concerns related to visit: Yes Coding Level of Care Code Tele Est Pt Level 4 ([id number]) Diagnoses Morbid obesity E66.01 Elevated TSH R79.89
[2023-07-01 15:41] VITALS: BMI 53.4
== END 2023-07-01 15:59 | disposition home or self-care (01) ==
LOC: HO.HBS 15:55
PROVIDERS: Visit Provider Physician Assistant
DX: E66.01 Morbid (severe) obesity due to excess calories (principal); Z68.43 Body mass index [BMI] 50.0-59.9, adult; R79.89 Other specified abnormal findings of blood chemistry
CPT/HCPCS: 99213

== ENCOUNTER → 2023-07-01 15:30 | Outpatient (BNVA) | payer OTHER, SELFPAY | PROVIDERS: Visit Provider Physician Assistant | DX: E66.01 Morbid (severe) obesity due to excess calories (principal); K76.0 Fatty (change of) liver, not elsewhere classified ==

== ENCOUNTER 2023-08-20 12:45 | Outpatient (AMB) | payer OTHER, SELFPAY ==
--- NOTE | 2023-08-20 12:47 | A.OFFWM_ITS ---
Intake Intake Visit Reasons: VIDEO F/U Allergies No Known Allergies Allergy (Verified 05/14/23 15:36) PFSH Surgical History Hx of wisdom tooth extraction Family History Mother Thyroid disease Father Cancer High cholesterol Hypertension Diabetes Sister No problems noted. Sister No problems noted. Brother Cirrhosis Social History Alcohol intake: current Alcohol intake frequency: a few times a month Patient Tobacco Use Status: Never used Tobacco Behavioral Health Assessment Weight Management Therapy Therapy Notes Details PT presents for a follow up. She has been cleared from standpoint and is meeting with me today for support. INTERVENTIONS: Discussed functioning. Processed progress made and strengths showed that benefits her weight-loss journey. Provided strategies for possible challenges she might face. Identified supports and resources to use post- surgery. RESPONSE: active, engaged. MSE within normal limits. Assessment & Plan Assessment & Plan (1) Eating disorder: Code(s): F50.9 - Eating disorder, unspecified (2) Adjustment disorder, unspecified: Code(s): F43.20 - Adjustment disorder, unspecified Plan Follow up on 09/23 12:30pm - video. Telehealth Telehealth Location of patient: address on file Patient Identification confirmed using: Name, : Yes Telehealth method: video Patient verbally consented to treatment: Yes Patient verbally consented to billing insurance company: Yes Patient informed of any privacy concerns related to visit: No Minutes spent on Phone/Video with Pt.: 45 Coding Level of Care Code Established Pt Tele Psytx 45 mins ([id number]) Patient Type Established Diagnoses Eating disorder F50.9 Adjustment disorder, unspecified F43.20 Time Spent (min) 45
== END 2023-08-20 13:31 | disposition home or self-care (01) ==
LOC: HO.HBST 12:49
PROVIDERS: Visit Provider Counselor Mental Health
DX: F50.9 Eating disorder, unspecified (principal); F43.20 Adjustment disorder, unspecified
CPT/HCPCS: 90834

== ENCOUNTER → 2023-08-20 12:45 | Outpatient (BNVA) | payer OTHER, SELFPAY | PROVIDERS: Visit Provider Counselor Mental Health ==

== ENCOUNTER 2023-09-23 12:30 | Outpatient (AMB) | payer OTHER, SELFPAY ==
--- NOTE | 2023-09-23 12:40 | MHC.WMTHER ---
Intake Intake Visit Reasons: VIDEO BH F/U Allergies No Known Allergies Allergy (Verified 05/14/23 15:36) PFSH Surgical History Hx of wisdom tooth extraction Family History Mother Thyroid disease Father Cancer High cholesterol Hypertension Diabetes Sister No problems noted. Sister No problems noted. Brother Cirrhosis Social History Alcohol intake: current Alcohol intake frequency: a few times a month Patient Tobacco Use Status: Never used Tobacco Behavioral Health Assessment Weight Management Therapy Therapy Notes Details PT presents for a follow up. PT reports she is a 333Lbs today and feels happy with progress. INTERVENTIONS: Explored ways how she can engage in behavioral activation plan and increase exercise. Worked in coping with possible challenges post-op and identified coping strategies to adjust to changes. RESPONSE: aware of needs, engaged. Presenting Concerns Referral Source [facility]MP Provider. PT sees Grace NELSON Reason for referral Completion of behavioral health assessment as part of process for weight-loss surgery. Precipitating Event Obesity. When Covid happened she got concerned as she was in a higher risk due to her weight. Assessment & Plan Assessment & Plan (1) Eating disorder: Code(s): F50.9 - Eating disorder, unspecified (2) Adjustment disorder, unspecified: Code(s): F43.20 - Adjustment disorder, unspecified Plan Patient has been cleared. She doesn't need to follow up pre-op. Advised of available resources post-op. Telehealth Telehealth Location of patient: address on file Patient Identification confirmed using: Name, : Yes Telehealth method: video Patient verbally consented to treatment: Yes Patient verbally consented to billing insurance company: Yes Patient informed of any privacy concerns related to visit: No Minutes spent on Phone/Video with Pt.: 45 Coding Level of Care Code Established Pt Tele Psytx 45 mins ([id number]) Patient Type Established Diagnoses Eating disorder F50.9 Adjustment disorder, unspecified F43.20
== END 2023-09-23 13:15 | disposition home or self-care (01) ==
LOC: HO.HBST 12:47
PROVIDERS: Visit Provider Counselor Mental Health
DX: F50.9 Eating disorder, unspecified (principal); F43.20 Adjustment disorder, unspecified
CPT/HCPCS: 90834

== ENCOUNTER → 2023-09-23 12:30 | Outpatient (BNVA) | payer OTHER, SELFPAY | PROVIDERS: Visit Provider Counselor Mental Health ==

== ENCOUNTER 2023-09-23 13:30 | Outpatient (AMB) | payer OTHER, SELFPAY ==
--- NOTE | 2023-09-23 13:02 | MHC.OFFVISWM ---
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 April 2023, patient had completed all pre op work up but wanted to wait until now for her surgery. Now hoping to have surgery in first weeks of October during her break form school. She lives in a dorm at a private school. TBWL is 31.2 lbs or 8.6%. Meal plan - 8:30 am-Premier RTD 11:30 - Quest bar 1:30 pm - salad or vegetable with protein (6-8 oz) 4:30 pm - cottage cheese or yogurt 7:30 pm - another Exercise - total 4d/week. LS 2 miles - 3d/week, 400 calories. TBP - once week, 500 calories. Pre op work up completed as follows: SW classes -? 05/19 appts ? - Sachi 05/22 ? - no appt yet, rescheduled for 06/17, cleared RD appts? - follow up 06/17, cleared H pylori -negative Labs - TSH 5, free T4 normal , will contact PCP, now waiting for appt. CXR - normal ECG - normal ULS - fatty liver R 20/L 14 - hepatomegaly UGI - mild reflux only Contraception - none, no male sex partner - will use condoms prn. PFSH Surgical History Hx of wisdom tooth extraction Family History Mother Thyroid disease Father Cancer High cholesterol Hypertension Diabetes Sister No problems noted. Sister No problems noted. Brother Cirrhosis Social History Alcohol intake: current Alcohol intake frequency: a few times a month Patient Tobacco Use Status: Never used Tobacco Assessment & Plan Assessment & Plan (1) Morbid obesity: Code(s): E66.01 - Morbid (severe) obesity due to excess calories Plan: SWL plan today.To help pt beready for surgery next month I am asking Yin to send for authorization now and Candida will schedule patient with Dr Landaverde for later this month. She will text me her weights weekly. Change Premier RTD shake to Premeir powdered shake, mix 8oz water or UAM. Change cottage to a bar Meal - 12 forks of protein and 12 forks of vegetables Daily - 2 shakes, 2 bars, 1 meal. Exercise - 2,000 darcy/week. 2 d TBP, Treadmill or elliptical for 400 calories 3 d/ week. Speed 3.0, incline 2-6. Has access to gym on campus. Patient is still morbidly obese and is not considered stable at this time. I spent 30 minutes in total speaking with the patient via video conference counseling , reviewing records and charting in patients chart. . (2) Steatosis, liver: Code(s): K76.0 - Fatty (change of) liver, not elsewhere classified (3) Elevated TSH: Code(s): R79.89 - Other specified abnormal findings of blood chemistry Plan see above Telehealth Telehealth Location of provider rendering services: practice address Location of patient: address on file Patient Identification confirmed using: Name, : Yes Telehealth method: video Patient verbally consented to treatment: Yes Patient verbally consented to billing insurance company: Yes Patient informed of any privacy concerns related to visit: Yes Coding Level of Care Code Tele Est Pt Level 4 (15407) Diagnoses Morbid obesity E66.01 Steatosis, liver K76.0 Elevated TSH R79.89
[2023-09-23 13:32] VITALS: BMI 52.1
== END 2023-09-23 13:54 | disposition home or self-care (01) ==
LOC: HO.HBS 13:54
PROVIDERS: Visit Provider Physician Assistant
DX: E66.01 Morbid (severe) obesity due to excess calories (principal); Z68.43 Body mass index [BMI] 50.0-59.9, adult; K76.0 Fatty (change of) liver, not elsewhere classified; R79.89 Other specified abnormal findings of blood chemistry
CPT/HCPCS: 99214

== ENCOUNTER 2023-10-09 08:15 | Outpatient (AMB) | payer OTHER, SELFPAY ==
--- NOTE | 2023-10-09 09:59 | A.OFFVIS_ITS ---
Intake VS Expanded 10/09/23 10:00 Height 5 ft 7 in Weight 328 lb 1 oz BMI 51.4 Intake Visit Reasons: TV Pre Op LSG 10/20/23 Allergies No Known Allergies Allergy (Verified 10/09/23 10:01) Medication List - Last Reconciled 10/09/23 by Sudhir Montoya MD cholecalciferol (vitamin D3) 25 mcg PO DAILY ondansetron 4 mg PO Q6H PRN ondansetron 4 mg PO Q6H PRN pantoprazole 40 mg PO DAILY pantoprazole 40 mg PO DAILY polyethylene glycol 3350 (Miralax) 17 grams PO DAILY polyethylene glycol 3350 (Miralax) 17 grams PO DAILY sucralfate 10 mL PO BID sucralfate 10 mL PO BID thiamine HCl (vitamin B1) 50 mg PO DAILY HPI TV Pre Op LSG 10/20/23 HPI Details Start time: 9.51am, End time: 10.14am. An additional 35 minutes were used at a different part of the day to complete this note and review patient's records. ?I spent 25 minutes speaking with the patient on the phone plus an additional 35 minutes reviewing and updating records for a total of 60 minutes HPI Comments History of Present Illness Details Overall weight loss: 35.9lbs, or 9.86% TBWL Is doing 2 Premier protein shakes (2 scoops each in 8oz water), 1-2 Quest protein bars and one meal (12 forks of meat and 12 forks of salad or vegetables) Exercise: home exercise videos and home treadmill PFSH Surgical History Hx of wisdom tooth extraction Family History Mother Thyroid disease Father Cancer High cholesterol Hypertension Diabetes Sister No problems noted. Sister No problems noted. Brother Cirrhosis Social History Alcohol intake: current Alcohol intake frequency: a few times a month Patient Tobacco Use Status: Never used Tobacco Assessment & Plan Assessment & Plan (1) Morbid obesity: Code(s): E66.01 - Morbid (severe) obesity due to excess calories Plan: 1. Plan for lap sleeve gastrectomy including upper GI endoscopy. All tests has been completed and reviewed and the patient is cleared for the surgery. ?If diaphragmatic or ventral hernias are present at time of surgery, these will be repaired laparoscopically as well. Risks and complications were discussed in detail including possible conversion to an open procedure, anastomotic leak, bleeding requiring transfusion, small bowel obstruction, , DVT and pulmonary embolism, cardiac, or pulmonary complications, as buttermaker continuous churn complications such as anastomotic ulcer, insufficient weight loss and vitamin deficiencies. I emphasized the importance of close follow-up, adherence to instructions and good communication. So far she has proven to be an excellent communicator and very compliant with all our directions accomplishing a great weight loss. I believe that she is an excellent candidate and she is ready. 2. Preop prescriptions were provided and explained the purpose of each one. Need to be purchased preop. Start Pantoprazole now as you get it from the pharmacy, 1 pill per day. Sucralfate and Zofran are for after surgery as needed. 3. Bowel prep: please do 7 packets ?of Miralax mixing each one with a an 8oz glass of water, crystal light, gatorade zero, or propel ?on 10/18/23 and the same amount on 10/19/23. Continue the protein shakes during? the bowel prep. 4. Needs to purchase 1oz medicine cups . 5. Needs to purchase Children's liquid Tylenol for postop pain control. 6. Avoid aspirin, motrin, Advil, Aleve, Ibuprofen, Naproxyn. Tylenol is OK. 7. She needs to purchase the Celebrate 4:1 protein shakes from the hospital's gift shop. 8. Will do basic preop blood work-up any day between Thursday10/13/23 and Thursday10/16/23 fasting for 12 hours and is scheduled to see the Anesthesiologist prior to the day of surgery. 9. Start treadmill with an incline of 2.0 and speed of 3.0. Increase incline by 1 every 3 min to a max incline of 8.0, stay 3min at 8.0 and then return to 2.0 and repeat same steps until calorie goal is met. Goal is to burn 2000 calories per week on exercise, which means either 300 calories daily, or 400 calories 5 days per week, or 500 calories 4 days per week, or 650 calories 3 days per week. 10. Importance of adherence to postop folllow-up and recommendations was underscored and she understands that. 11. Stop food and bars as of 10/12/2023 and continue with 3 Premier protein shakes (ONE scoop EACH in 8oz almond milk) at 9am-11am, 12pm-2pm and 3pm-5pm and TWO more Premier protein shakes with TWO scoops EACH in 8oz of almond milk at 6pm- 8pm and 9pm-11pm 12. No soups, broths or V8 13. The patient's?medical?history has been reviewed and they are considered low risk for post op DVT and therefore DVT prophylaxis is not considered necessary. Travel after surgery was reviewed. The patient has not disclosed any travel plans during the first 30 days after surgery and they have been advised that within the first 30 days after surgery any bus, plane, train or car travel over 2 hours in duration is contraindicated due to the possibility of developing blood clots from immobility. Any travel, needs to include periods of ambulation of 10 minutes in duration every 2 hours.? Patient was instructed to discuss any plans for travel during this period with their bariatric surgeon.? 14. Please take at the day of surgery the following medications: NONE 15. Stop any control pills and don't use them for one month after surgery 16. Absolutely no smoking or vaping, or marijuana until the surgery and for at least the first 4 weeks. Only nicotine patches are allowed. 17. Send me weight measurements on and then on the day of surgery before you go to the hospital. 18. Avoid any steroids by mouth for any reason. Let me know if someone prescribes them to you Orders: Orders TSH reflex Free T4 10/08/23 E66.01 - Morbid (severe) obesity due to excess calories, R79.89 - Other specified abnormal findings of blood chemistry Partial Thromboplastin Time 10/08/23 E66.01 - Morbid (severe) obesity due to excess calories, R79.89 - Other specified abnormal findings of blood chemistry C Reactive Protein 10/08/23 E66.01 - Morbid (severe) obesity due to excess calories, R79.89 - Other specified abnormal findings of blood chemistry Comprehensive Met. Panel 10/08/23 E66.01 - Morbid (severe) obesity due to excess calories, R79.89 - Other specified abnormal findings of blood chemistry Complete Blood Count Auto Diff 10/08/23 E66. - Morbid (severe) obesity due to excess calories, R79.89 - Other specified abnormal findings of blood chemistry Type and Screen Today E66. - Morbid (severe) obesity due to excess calories, K76.0 - Fatty (change of) liver, not elsewhere classified, R79.89 - Other specified abnormal findings of blood chemistry Lipid Panel Today E66. - Morbid (severe) obesity due to excess calories, K76.0 - Fatty (change of) liver, not elsewhere classified, R79.89 - Other specified abnormal findings of blood chemistry Comprehensive Met. Panel Today E66. - Morbid (severe) obesity due to excess calories, K76.0 - Fatty (change of) liver, not elsewhere classified, R79.89 - Other specified abnormal findings of blood chemistry Insulin Today E66. - Morbid (severe) obesity due to excess calories, K76.0 - Fatty (change of) liver, not elsewhere classified, R79.89 - Other specified abnormal findings of blood chemistry Prothrombin Time INR 10/08/23 E66. - Morbid (severe) obesity due to excess calories, R79.89 - Other specified abnormal findings of blood chemistry Type and Screen 10/08/23 E66. - Morbid (severe) obesity due to excess calories, R79.89 - Other specified abnormal findings of blood chemistry Lipid Panel 10/08/23 E66. - Morbid (severe) obesity due to excess calories, R79.89 - Other specified abnormal findings of blood chemistry Hemoglobin A1c 10/08/23 E66. - Morbid (severe) obesity due to excess calories, R79.89 - Other specified abnormal findings of blood chemistry Insulin 10/08/23 E66. - Morbid (severe) obesity due to excess calories, R79.89 - Other specified abnormal findings of blood chemistry TSH reflex Free T4 Today E66. - Morbid (severe) obesity due to excess calories, K76.0 - Fatty (change of) liver, not elsewhere classified, R79.89 - Other specified abnormal findings of blood chemistry Prothrombin Time INR Today E66.01 - Morbid (severe) obesity due to excess calories, K76.0 - Fatty (change of) liver, not elsewhere classified, R79.89 - Other specified abnormal findings of blood chemistry Partial Thromboplastin Time Today E66.01 - Morbid (severe) obesity due to excess calories, K76.0 - Fatty (change of) liver, not elsewhere classified, R79.89 - Other specified abnormal findings of blood chemistry C Reactive Protein Today E66.01 - Morbid (severe) obesity due to excess calories, K76.0 - Fatty (change of) liver, not elsewhere classified, R79.89 - Other specified abnormal findings of blood chemistry Hemoglobin A1c Today E66.01 - Morbid (severe) obesity due to excess calories, K76.0 - Fatty (change of) liver, not elsewhere classified, R79.89 - Other specified abnormal findings of blood chemistry Complete Blood Count Auto Diff Today E66.01 - Morbid (severe) obesity due to excess calories, K76.0 - Fatty (change of) liver, not elsewhere classified, R79.89 - Other specified abnormal findings of blood chemistry Medications: New pantoprazole 40 mg PO DAILY 90 tabs 0RF K21.9 - Gastro-esophageal reflux disease without esophagitis sucralfate 10 mL PO BID 600 mL 2RF K21.9 - Gastro-esophageal reflux disease without esophagitis ondansetron Only take one every 12 hours as needed if you have nausea 4 mg PO Q6H PRN 20 tabs 0RF nausea and vomiting R11.0 - Nausea polyethylene glycol 3350 (Miralax) Mix each packet with 8oz of water, Crystal light, or Gatorade zero, or Propel and do 7 packets on 10/18/23 and another 7 packets on 10/19/23 17 grams PO DAILY 14 ea 0RF Z01.818 - Encounter for other preprocedural examination pantoprazole 40 mg PO DAILY 90 tabs 0RF K21.9 - Gastro-esophageal reflux disease without esophagitis ondansetron Only take one every 12 hours as needed if you have nausea 4 mg PO Q6H PRN 20 tabs 0RF nausea and vomiting R11.0 - Nausea polyethylene glycol 3350 (Miralax) Mix each packet with 8oz of water, Crystal light, or Gatorade zero, or Propel and do 7 packets on 10/18/23 and another 7 packets on 10/19/23 17 grams PO DAILY 14 ea 0RF Z01.818 - Encounter for other preprocedural examination sucralfate 10 mL PO BID 600 mL 2RF K21.9 - Gastro-esophageal reflux disease without esophagitis Telehealth Telehealth Location of provider rendering services: practice address Location of patient: address on file Patient Identification confirmed using: Name, : Yes Telehealth method: voice only Patient verbally consented to treatment: Yes Patient verbally consented to billing insurance company: Yes Patient informed of any privacy concerns related to visit: Yes Minutes spent on Phone/Video with Pt.: 60 Coding Level of Care Code Tele Est Pt Level 5 (23080) Diagnoses Morbid obesity E66.01 Time Spent (min) 60
[2023-10-09 10:00] VITALS: BMI 51.4
== END 2023-10-09 10:15 | disposition home or self-care (01) ==
LOC: HO.HBS 08:15
PROVIDERS: Visit Provider Surgery
DX: E66.01 Morbid (severe) obesity due to excess calories (principal); Z68.43 Body mass index [BMI] 50.0-59.9, adult
CPT/HCPCS: 99024

== ENCOUNTER → 2023-10-09 08:15 | Outpatient (BNVA) | payer OTHER, SELFPAY | PROVIDERS: Visit Provider Surgery | DX: E66.01 Morbid (severe) obesity due to excess calories (principal); R79.89 Other specified abnormal findings of blood chemistry; K21.9 Gastro-esophageal reflux disease without esophagitis; R11.0 Nausea; Z01.818 Encounter for other preprocedural examination ==

== ENCOUNTER 2023-10-16 08:03 | Outpatient (REF) | payer OTHER, SELFPAY ==
[2023-10-16 09:12] LABS: Alanine Aminotransferase 15 U/L (0-31); Albumin Level 4.1 g/dL (3.5-5.0); Alkaline Phosphatase 119 U/L (39-117); Anion Gap 11 (12-20); Aspartate Amino Transferase 18 U/L (5-31); Bilirubin Total 0.5 mg/dL (0.0-1.0); Blood Urea Nitrogen 15 mg/dL (9-16); C Reactive Protein 0.68 mg/dL (< or = 0.50); Calcium 9.6 mg/dL (8.4-10.2); Carbon Dioxide 25 mmol/L (22-29); Chloride 107 mmol/L (96-108); Cholesterol 187 mg/dL (<200); Estimated Glomerular Filt Rate > 60; Glucose Random 84 mg/dL (60-115); HDL Cholesterol 27 mg/dL (>40); LDL Cholesterol Calculated 137 mg/dL (<100); Potassium 3.7 mmol/L (3.3-5.1); Sodium 139 mmol/L (135-145); Triglycerides 119 mg/dL (<150)
[2023-10-16 09:31] LABS: Insulin 10 uU/mL (2-29); TSH reflex Free T4 2.62 uIU/mL (0.32-4.0)
== END 2023-10-16 08:04 | disposition home or self-care (01) ==
LOC: HO.LAB 08:03
PROVIDERS: Visit Provider Surgery
DX: E66.01 Morbid (severe) obesity due to excess calories (principal); K76.0 Fatty (change of) liver, not elsewhere classified; R94.6 Abnormal results of thyroid function studies
CPT/HCPCS: 36415; 80053; 80061; 83036; 83525; 84443; 85025; 85610; 85730; 86140

== ENCOUNTER 2023-10-20 06:44 | Inpatient (IN) | payer OTHER, SELFPAY ==
[2023-10-09 12:45] VITALS: BMI 52.9
--- NOTE | 2023-10-16 23:02 | MHC.SHP ---
Pre-Procedural Eval Section A Date of Service: 10/16/23 The patient is an INPATIENT: Yes The History & Physical has been completed within 30 days and I have reviewed it.: Yes Section B Chief Complaint: Morbid (severe) obesity due to excess calories Relevant Family History (Specify if Yes): No Relevant Social History: None Present Medications: None Medical History: No relevant PMH History of Previous Operations: No relevant previous surgery Allergies: Allergies Allergy/AdvReac Type Severity Reaction Status Date / Time No Known Allergies Allergy Verified 10/09/23 10:01 Review of Systems Sugical H&P ROS: Negative: Constitution, Cardiovascular, Respiratory, Neurological, Psychiatric, Hem-Onc, Allergic/Immunologic, Gastrointestinal, Genitourinary, Musculoskeletal, Integumentary, Endocrine and Eyes/Ears/Nose/Throat Exam Surgical H&P Exam: Normal: HEENT, Normal: Heart, Normal: Lungs, Normal: Extremities, Normal: Abdomen, Normal: Skin and Normal: Neurological Plan Diagnosis/Plan: Unchanged I have reviewed the history and physical and performed a pertinent physical examination on my patient. No changes have occurred unless specified. Time Spent With Patient Time: Total time managing care of this patient today ____ minutes.
--- NOTE | 2023-10-19 09:52 | HO.ANESPROP2 ---
Documented by User: Key Pabon NP 10/19/23 09:53 HPI - Anesthesia Eval Consult details Narrative: 28yo F for Gastrectomy Sleeve-EGD, possible diaphragmatic hernia, possible ventral hernia, possible open PMFSH Active Problems Active Problems: All Active Problems (Updated 10/09/23 @ 12:29 by Angely Faria RN) Elevated TSH (Acute) Steatosis, liver (Acute) Pre-op evaluation (Acute) Morbid obesity (Acute) Past Medical History Medical History Asthma Family History Family History Mother Thyroid disease Father Cancer High cholesterol Hypertension Diabetes Sister No problems noted. Sister No problems noted. Brother Cirrhosis Surgical History Surgical History History of esophagogastroduodenoscopy (EGD) Hx of wisdom tooth extraction Social History Social History Are you a primary career consultant to a significant other at home: No Do you presently have visiting nurse or other home services: No Alcohol intake: current Alcohol intake frequency: does not drink Patient Tobacco Use Status: Never used Tobacco Use of substances other than those prescribed or required for medical reasons: No Have you been hit, kicked, punched, or otherwise hurt by someone within the past year? If so, by whom?: No Advance Directives: No Advance Directives Information Provided: No Advance Directives on File: No Recently lost weight without trying: No Eating poorly because of decreased appetite: No Nutrition Risks: No Nutritional Risk Patient : No : No Poor oral hygiene: No Meds Allergies Allergy/AdvReac Type Severity Reaction Status Date / Time No Known Allergies Allergy Verified 10/09/23 10:01 Exam Height,Weight and Vital Signs: Height 5 ft 6 in Weight 148.778 kg Pertinent Lab Results Pertinent Lab Results: Laboratory Tests 10/16/23 08:20 Blood Type O Positive Antibody Screen NEGATIVE Laboratory Tests 10/16/23 08:24 WBC 5.2 Hgb 13.6 Hct 41.5 Plt Count 313 Sodium 139 Potassium 3.7 Chloride 107 Carbon Dioxide 25 BUN 15 Creatinine 0.76 Narrative Narrative: EKG 04/2023 Vent. Rate : 081 BPM Atrial Rate : 081 BPM P-R Int : 162 ms QRS Dur : 084 ms QT Int : 362 ms P-R-T Axes : 036 004 028 degrees QTc Int : 420 ms Normal sinus rhythm Normal ECG No previous ECGs available Assessment and Plan Assessment Anesthesia Assessment: Chart Reviewed Documented by User: Sonido Gonzales MD 10/20/23 07:15 [facility] Past Medical History Medical History Asthma Family History Family History Mother Thyroid disease Father Cancer High cholesterol Hypertension Diabetes Sister No problems noted. Sister No problems noted. Brother Cirrhosis Family history of problems with anesthesia: No Surgical History Surgical History History of esophagogastroduodenoscopy (EGD) Hx of wisdom tooth extraction History of Problems with Anesthesia: No Social History Social History Are you a primary career consultant to a significant other at home: No Do you presently have visiting nurse or other home services: No Alcohol intake: current Alcohol intake frequency: does not drink Patient Tobacco Use Status: Never used Tobacco Use of substances other than those prescribed or required for medical reasons: No Have you been hit, kicked, punched, or otherwise hurt by someone within the past year? If so, by whom?: No Advance Directives: No Advance Directives Information Provided: No Advance Directives on File: No Recently lost weight without trying: No Eating poorly because of decreased appetite: No Nutrition Risks: No Nutritional Risk Patient : No : No Poor oral hygiene: No Meds Allergies Allergy/AdvReac Type Severity Reaction Status Date / Time No Known Allergies Allergy Verified 10/09/23 10:01 Exam Airway Mallampati Class: III TM Dist: >3cm Neck ROM: Full Loose/Missing/Broken Teeth: No Heart: rrr+[id number] Lungs: cta b/l Assessment and Plan Assessment Anesthesia Assessment: Anesthesia Plan Discussed Final Anesthetic Review Family History of Problems with Anesthesia: No History of Problems with Anesthesia: No NPO: Yes ASA Class: III Final Preanesthetic Review: No Changes in Pt Med Stat, Meds/Allgs Chart Reviewed, Consent Obtained/Reviewed and Anes Risks/Benef Reviewed Patient Risk: Intermediate Procedure Risk: Intermediate Assessment/Block/Sedation in SS: Assess/Block/Sedation-SS Anesthetic Plan Anesthetic Plan: GA and Agree w/ Assess. and Plan Disposition: Standard PACU
[2023-10-20] VITALS (20 sets, daily range): BP systolic 107–139; BP diastolic 54–88; PULSE 76–96; RESP 14–19; TEMP 35.9–37.2; O2SAT 95–100; BMI 52.8
--- OUTSIDE RECORDS SUMMARY | 2023-10-20 06:55 | XMS_ITS | Continuity of Care Document ---
Author Name Unknown Organization [facility] Address [address] [place] [address]- Care Team Providers Care Blade Balancer Name Role Phone Candice Saucedo MD Primary Care Physician Encounter [facility] Date(s): 08/05/23 - 09/04/[address] [id number]- [place] Problem List Condition Confirmation Course Effective Dates Status [facility] Informant Bariatric surgery status Confirmed Active Severe obesity Confirmed Active Patient Care team information Care Team Personnel Name: Candice Saucedo MD Position: [facility] Resident Member Role: PCP Address: Address: [address] [place] [id number] Care Team Related Persons Name: PRANEETH TORRES
--- OUTSIDE RECORDS SUMMARY | 2023-10-20 06:55 | XMS_ITS | Continuity of Care Document ---
Author Name Unknown Organization [facility] Address [address] [place] [address]- Care Team Providers Care Bread Pan Greaser Name Role Phone Candice Saucedo MD Primary Care Physician [phone] Encounter [facility] Date(s): 08/03/23 - 09/02/[address] [phone]- [place] Attending Physician: Celi Wooten Admitting Physician: Celi Wooten Referring Physician: Celi Wooten Problem List Condition Confirmation Course Effective Dates Status [facility] Informant Bariatric surgery status Confirmed Active Severe obesity Confirmed Active Patient Care team information Care Team Personnel Name: Candice Saucedo MD Position: [facility] Resident Member Role: PCP Address: Address: [address] [place] [id number]- Care Team Related Persons Name: PRANEETH TORRES
[2023-10-20 06:56] LABS: UPreg QC Valid YES; Urine Pregnancy NEGATIVE (NEGATIVE)
--- NOTE | 2023-10-20 07:10 | PHA.MEDREC ---
Pharmacy Consult ? Medication Reconciliation Pharmacy has completed the medication reconciliation. Reviewed med rec done by nursing
[2023-10-20] MEDS: Lactated Ringers 1,000 ML 999 ML IV (07:28)
[2023-10-20] MEDS: Aprepitant 32 MG/4.4 ML VIAL IVPUSH (07:47)
--- NOTE | 2023-10-20 08:05 | P.DS_ITS ---
DS: Providers Provider Date of Service: 10/21/23 Date of admission: 10/20/23 06:44 Primary care physician: Unknown Physician DS: Summary Hospital Course Hospital Course: ADMITTING DIAGNOSIS: morbid obesity DISCHARGE DIAGNOSIS: same, s/p laparoscopic sleeve gastrectomy PAST SURGICAL HISTORY: none PROCEDURE: upper endoscopy, laparoscopic sleeve gastrectomy DISCHARGE SUMMARY: History of Present Illness: The patient is a 28 year-old woman with a BMI of 57 kg/m2 and associated co- morbidities as described above. The patient had extensive work-up, lost 35.9 lbs preoperatively and was electively scheduled for laparoscopic, possible open sleeve gastrectomy and gastropexy. Risks and complications of the surgery were discussed with the patient in advance, particularly the possibility of , pulmonary embolism, anastomotic leak, bleeding, bowel injury, GERD, cardiac, renal or pulmonary complications. The patient understood all the risks and was in agreement with the surgical plan. Hospital Course: The patient underwent an uneventful laparoscopic sleeve gastrectomy with gastropexy on the day of admission. Postoperatively, the patient was transferred to the surgical floor. The patient received IV Acetaminophen and IV dilaudid for pain control. Patient was started on bariatric phase 1 diet POD #0. On postoperative day one, the patient was feeling well without nausea, vomiting, fevers, or tachycardia. The patient had some mild incisional pain and the abdomen was soft. On the morning of postoperative day one, the patient was continued on 1 ounce of water or ice every half hour. During the day, the patient did fairly well, having some incisional pain, but able to ambulate adequately and to tolerate liquids well. Since the patient is doing well, we decided that the patient was ready to be discharged. The patient was given instructions to follow-up with me next week and to call my office for any fever over 101, persistent abdominal pain, nausea, vomiting, GERD, symptoms of DVT such as calf tenderness, or leg swelling, or pulmonary embolism such as chest pain or shortness of breath. The patient was also instructed to drink 40-60 ounces of liquids per day using the 1-ounce cups. The patient had been given prescriptions for Tylenol for pain, Zofran prn for nausea, and pantoprazole and carafate previously. The patient was encouraged to ambulate and use the incentive spirometer. The patient was allowed to shower, but no baths, and encouraged to stay active at home. All of these instructions were given to the patient personally. All questions were answered and the patient understood all instructions, the instructions were also given to the patient in print. Time Attestation Discharge coordination time: Less than 30 minutes Quality: Safe Use of Opioids Does Pt have an Active Cancer Diagnosis on the Problem List?: No Quality: Stroke Does the patient have a stroke diagnosis?: No Physical Exam Vital Signs: Vital Signs: Last Vital Signs Temp 99.0 F 10/20/23 07:09 Pulse 82 10/20/23 07:09 Resp 16 10/20/23 07:09 BP 107/62 10/20/23 07:09 Pulse Ox 96 10/20/23 07:09 O2 Del Method Room Air 10/20/23 07:09 BMI result Body Mass Index 52.9 DS: Data Data Completed and Pending Labs on day of discharge: Laboratory Results - last 24 hr 10/20/23 06:48 Urine Test NEGATIVE Discharge Plan Discharge Anticipated Discharge Date/Time: 10/21/23 10:03 Patient Disposition: Home, Self-Care Discharge Diagnosis: s/p sleeve gastrectomy Referrals: Physician,Unknown J [Primary Care Provider] - 1 Week Discharge Medications: Continued pantoprazole 40 mg tablet,delayed release (DR/EC) 40 mg PO DAILY@0630 sucralfate 100 mg/mL suspension 10 ml PO BID Qty: 600 2RF ondansetron 4 mg tablet,disintegrating 4 mg PO Q6H PRN (Reason: nausea and vomiting) Qty: 20 0RF Rx Instructions: Only take one every 12 hours as needed if you have nausea Discontinued cholecalciferol (vitamin D3) 25 mcg (1,000 unit) capsule 25 mcg PO DAILY Qty: 30 3RF thiamine HCl (vitamin B1) 50 mg tablet 50 mg PO DAILY Qty: 30 5RF polyethylene glycol 3350 [Miralax] 17 gram powder in packet 17 g PO DAILY Qty: 14 0RF Rx Instructions: Mix each packet with 8oz of water, Crystal light, or Gatorade zero, or Propel and do 7 packets on 10/18/23 and another 7 packets on 10/19/23 Discharge Orders: Discharge Order (Routine); Ordered 10/21/23 Ordered By: Sudhir Montoya Activity on Discharge: No heavy lifting Stand Alone Forms: Patient Portal Discharge page Care Plan Goals: weight loss Health Concerns: morbid obesity Plan of Treatment: No tub baths, sex or returning to work until discussed at first post op appointment. No exercise, alcohol, tobacco or illegal drug use. Continue to use incentive spirometer hourly while awake. Walk in home for 5- 10 minutes every 2 hours during the first week. Continue phase 1 diet today and start phase 2 diet tomorrow morning. Follow all instructions in the bariatric handbook and call with any questions. 1. Please call your doctor or come back to the emergency room should any new symptoms arise. 2. You will receive a courtesy call from [facility] 24-48 hours after discharge. 3. Activity: abstain from alcohol, practice limited stair climbing, no bending, no driving, no exercise, no illicit substances, no lifting, no sex, no tub bath, no work. 4. Diet: continue as discussed with bariatric team.. 5. Dressing Change/Wound Care: Do not change or remove surgical dressings unless they are wet or soiled. 6. Call your doctor if: - Your temperature exceeds 101.5 F - You experience excessive pain or swelling - You have an unexpected reaction to medication - You have excessive bleeding - You experience continued vomiting/nausea - Your incision begins to separate - Your incision shows signs of infection such as increased redness, swelling, excessive pain, heat, or drainage (light blood or clear fluid is normal) 7. General instructions: No lifting greater than 5 lbs for 1 week and not more than 20lbs the next 3?weeks. No driving until seen at the office in 5-7 days after surgery. If you do not move your bowels in the next 2 days, please tell?Dr. Montoya. Please walk around your home every hour or two to prevent blood clots from forming in your legs. You do not need to wake from sleeping to walk. Please sleep in a bed or couch to prevent kinking at the hips and knees. Please take your incentive spirometer (your lung coordinator of placement) home with you and use it for the next few days to prevent pneumonia. You may shower, no hot tubs, baths or swimming pools.?Please follow the post op diet instructions you are?given by Dr Saima izaguirre? and text me daily at 5-6pm for an update.?If you have any issues or concerns or questions please communicate this to him via text.? The Celebrate shakes have all of the bariatric vitamins you need if you consume these shakes. If you are drinking other protein shakes, you will need to purchase the Celebrate multivitamins and calcium that are available in the hospital gift shop on the first floor of the main hospital.??Do not take anything without first discussing with Dr Montoya. Please make sure you are consuming at least 40 ounces of fluids per day starting the?day AFTER your discharge from the hospital. Always drink 1-2 ml per minute using the 5ml?syringe. If you drink faster you may experience?bloating,?gas pain, burping, nausea or heartburn. In that case please slow down your pace and use the syringe to?understand better the?proper?pace and volume of drinking. Do not hesitate to contact the office with any questions at . The patient's medical history has been reviewed and they are considered low risk for post op DVT and therefore DVT prophylaxis is not considered necessary. Travel after surgery was reviewed. The patient has not disclosed any travel plans during the first 30 days after surgery and they have been advised that within the first 30 days after surgery any bus, plane, train or car travel over 2 hours in duration is contraindicated due to the possibility of developing blood clots from immobility. Any travel, needs to include periods of ambulation of 10 minutes in duration every 2 hours. The patient was instructed to discuss any plans for travel during this period with their bariatric surgeon. Assessment: stable, post op sleeve gastrectomy
--- NOTE | 2023-10-20 08:07 | PM.OP ---
Brief Operative Note Date of Service: 10/20/23 Pre-op diagnosis: Morbid obesity with comorbidities (see below) Post-op diagnosis: same Procedure: INITIAL PATIENT BMI ON PRESENTATION AT OUR OFFICE: 57.1 kg/m2 LAST BMI BEFORE SURGERY:52.7 kg/m2 COMORBIDITIES: GERD, liver steatosis, hepatomegaly, liver fibrosis ?The patient presented to the Weight Management Program with significant obesity that was negatively impacting the patient's comorbidities as listed above.? The program is a phased program with a special focus on preoperative medical weight management to promote substantial weight loss and prepare the patients for the second phase of the program: bariatric surgery. The patient participated in an intensive weekly lifestyle ?intervention and exercise program during which the patient ?has lost between the initial office visit and the last preoperative visit 40lbs, or 11% of initial actual body weight. It was deemed appropriate for the patient to now have bariatric surgery. In light of the current Covid-19 pandemic and the well documented strong association of obesity and increased risk of worse outcomes if infected with Covid-19 (REFERENCES:https://pubmed.ncbi.nlm.nih.gov/82374740/,?https://pubmed.ncbi.nlm.nih.gov/63789247/), any delay in undergoing bariatric surgery may lead to the patient's worsening health condition and increased?risk of more severe Covid-19 disease if infected. In addition a recent?study from [facility] published in [facility] on 10/07/2021 ([email or web address]/C:/[email or web address]) found that, among patients with obesity, substantial weight loss achieved with surgery was associated with improved outcomes of COVID-19 infection. The findings suggest that obesity can be a modifiable risk factor for the severity of COVID-19 infection. In addition, the patient met the BMI-criteria for bariatric surgery based on the BMI on initial presentation. The patient should not be penalized for achieving such weight loss because ?it is not sustainable long-term without surgical intervention and it was achieved in preparation for bariatric surgery ?under my direction and based on my published research ([email or web address]:/[email or web address]).pdf and?https://www.soard.org/article/Y5246-2317(40)26361-X/pdf) ?that a 10% preoperative weight loss improves long-term weight loss after surgery and reduces perioperative complications.? Insurance carriers such as [facility] have endorsed my recommendations ?and have included in their policies criteria to include a 10% preoperative weight loss requirement. PROCEDURE: Esophago-gastroscopy, laparoscopic sleeve gastrectomy and laparoscopic gastropexy INDICATIONS: This is a 28 year-old female who was electively scheduled for laparoscopic, possibly open sleeve gastrectomy. The risks and complications of the procedure were discussed with the patient in advance, particularly the possibility of ; pulmonary embolism; staple line leak; bleeding; GERD; cardiac, pulmonary, or renal complications; as well as long-term problems such as insufficient weight loss, vitamin deficiency, strictures, or ulcers. The patient understood all the risks, and was in agreement to proceed with surgery. DESCRIPTION OF PROCEDURE: After informed consent was obtained from the patient, the patient was given preoperative antibiotics, and was transferred to the operating room. After successful induction of general anesthesia, pneumatic compression devices were placed on both lower extremities. An upper endoscopy was performed next. The oropharynx and esophagus appeared to be within normal limits. There was no diaphragmatic hernia present consistent with the findings of the preoperative upper GI. The stomach was entered. Then after all fluid and air were suctioned and the stomach was fully decompressed, the scope was withdrawn and secured in the mid esophagus. The patient was then prepped and draped in the usual sterile manner, and abdominal access was established at the right upper quadrant with the Anais technique. A 12 mm blunt port was inserted, and the abdomen was insufflated with CO2 to a pressure of 15 mmHg. Under direct visualization, additional ports were placed, specifically two 5 mm Versi-step ports to the left upper quadrant, and a 5 mm Versi-Step port to the right upper quadrant. 1% lidocaine plain was used to infiltrate all port sites as well as all fascia defects. Following that, the patient was placed in a steep reverse Trendelenburg position. An additional 5 mm port was placed to the right flank for the Mediflex retractor that was used to retract the left lobe of the liver. The gastro-esophageal fat pad was opened with the ultrasonic device (Thvaldemarerbeat, Olympus) and the anterior esophagus and hiatus were exposed. The angle of His was opened with the ultrasonic device the fundus of the stomach from any diaphragmatic and splenic attachments. I then opened the gastrocolic ligament between the transverse colon and the greater curvature of the stomach with the ultrasonic device to enter the lesser sac and facilitate the ligation of the short gastric vessels. I started at a mid-point along the greater curvature and using the Thunderbeat, all short gastric vessels were divided all the way to the angle of His until the left kelley was completely dissected at its entirety. I then divided the gastro-colic ligament distally to a distance of about 3-4 cm proximal to the pylorus. The stomach was then divided transversely with one Endo JESSICA-45 purple and four JESSICA-60 articulating purple loads using the Grower's Secret stapler and loads. Every effort was made that the gastric sleeve had a tubular shape and an even caliber throughout. Once the sleeve resection was completed, the staple line of the gastric sleeve was reinforced with Hemoclips. The resected stomach was retrieved without difficulty from the Anais port. A gastropexy was then performed in order to prevent postoperative GERD and partial gastric volvulus. Several interrupted 2.0 Surgidac sutures were placed between the sleeve's staple line and the previously divided greater omentum and gastro-colic ligament using the Endo-Stitch device. ?An upper endoscopy was performed. There was no narrowing at the GE junction. The scope was easily advanced all the way to the pylorus which was clearly visualized. There was no narrowing anywhere and the sleeve's caliber was even throughout. The sleeve's staple line was inspected and there was no evidence of ischemia, bleeding or dehiscence. At that point the gastroscope was withdrawn from the patient?s mouth while we were decompressing the bowel and the stomach from any remaining air. I looked into the lesser sac to see how the sleeve was situating and it was situating well. There was no bleeding from the staple line, spleen, or short gastric vessels. The Mediflex retractor was removed, and the undersurface of the liver was inspected and there was no bleeding. The patient was placed in supine position. I closed the fascial defect of the 12 mm port site with a figure of eight #1 Polysorb suture. Then 30cc Ropivacaine plain with 10 mg of Dexamethasone were used to infiltrate the fascial closure as well as all skin incisions. At this point, the abdomen was deflated, all ports were removed under direct vision, and no bleeding was noted from any of the port sites. The skin incisions were irrigated with saline and were closed with 4-0 absorbable monofilament sutures. Steri-Strips and OpSites were used to cover all incisions. The patient was extubated and was transferred in stable condition to the recovery room for further care. I was present and performed all tierney parts of the procedure. Ms. Porter was the construction assistant. There were no residents to assist with this case. Carmelo Montoya MD, PhD, FACS Surgeon: Sudhir Montoya MD Anesthesia: GETA, local and other (TAP block) Was an Cabin Outfitter used for this Procedure?: No Cabin Outfitter: Grace Porter Estimated blood loss (mL): 10 IV fluids (mL): 2,500 Urine output (mL): 0 (No Taylor to record output) Pathology: other (Stomach) Condition: stable Disposition: PACU
--- NOTE | 2023-10-20 08:09 | P.PNGS_ITS ---
Subjective Subjective Date of Service: 10/21/23 Interval history: Feels well. Mild incisional pain. She is tolerating phase 1 bariatric diet Physical Exam 2 Vital Signs: Vital Signs: Last Vital Signs Temp 99.0 F 10/20/23 07:09 Pulse 82 10/20/23 07:09 Resp 16 10/20/23 07:09 BP 107/62 10/20/23 07:09 Pulse Ox 96 10/20/23 07:09 O2 Del Method Room Air 10/20/23 07:09 BMI result Body Mass Index 52.9 GI: Inspection: Yes normal to inspection, Yes incision (clean, dry and intact) and Yes obesity Palpation (GI): Soft to palpation Extrem: Right lower extremity: normal to inspection (no calf tenderness) L eft lower extremity: normal to inspection (no calf tenderness) Objective Data Active Medications Albuterol Sulfate (Albuterol Sulfate (0.083%) 2.5 Mg/3 Ml Vial.Neb) 2.5 mg INHALE ONCE PRN PRN Reason: Shortness of Breath/Wheezing Fentanyl (Fentanyl Citrate/Pf 100 Mcg/2 Ml Vial) 50 mcg IVPUSH Q5M PRN; Protocol PRN Reason: Pain, Severe (Pain Scale 7-10) Hydromorphone HCl (Hydromorphone Hcl 0.5 Mg/0.5 Ml Syringe) 0.5 mg IVPUSH Q5M PRN; Protocol PRN Reason: Pain, Severe (Pain Scale 7-10) Lactated Ringer's (Lr) 1,000 mls @ 100 mls/hr IVCONT .Q10H [facility] Lactated Ringer's (Lr) 1,000 mls @ 999 mls/hr IV .Q1H1M [facility] Stop: 10/20/23 08:45 Last Admin: 10/20/23 07:28 Dose: 999 mls/hr Documented By: MARQUES Promethazine HCl 6.25 mg/ (Sodium Chloride) 50.25 mls @ 201 mls/hr IV ONCE PRN PRN Reason: Nausea and Vomiting Ondansetron HCl (Ondansetron Hcl 4 Mg/2 Ml Vial) 4 mg IVPUSH ONCE PRN PRN Reason: Nausea and Vomiting Labs 10/21/23 05:40 10/21/23 05:40 Labs: Laboratory Results - last 24 hr 10/20/23 06:48 Urine Test NEGATIVE Procedures Date of Service Date of Service: 10/21/23 Progress Note: A&P Assessment and plan (1) Morbid obesity: Status: Acute Assessment and Plan: s/p laparoscopic sleeve gastrectomy and gastropexy Doing well Will check am labs and if OK the patient will be discharged home (2) Steatosis, liver: Status: Acute (3) Liver fibrosis: Status: Acute (4) Hepatomegaly: Status: Acute (5) GERD (gastroesophageal reflux disease): Status: Acute (6) S/P laparoscopic sleeve gastrectomy: Status: Acute Time Spent With Patient Time: Total time managing care of this patient today ____ minutes. Quality Stroke Does the patient have a stroke diagnosis?: No VTE Prior VTE?: No VTE Risk Level:: Surgical - moderate VTE Device Contraindication: N/A - Device Ordered VTE Drug Contraindication: Treatment Not Indicated
[2023-10-20 11:48] LABS: Hematocrit 38.4 % (37.0-47.0); Hemoglobin 12.3 g/dl (12.0-16.0)
[2023-10-20 12:02] LABS: Anion Gap 12 (12-20); Blood Urea Nitrogen 15 mg/dL (9-16); Calcium 9.2 mg/dL (8.4-10.2); Carbon Dioxide 24 mmol/L (22-29); Chloride 105 mmol/L (96-108); Creatinine Clr Calc Pharmacy 159.7; Estimated Glomerular Filt Rate > 60; Glucose Random 135 mg/dL (60-115); Potassium 3.6 mmol/L (3.3-5.1); Sodium 137 mmol/L (135-145)
[2023-10-20] MEDS: Lactated Ringers 1,000 ML 100 ML IVCONT ×2 (13:31→22:39)
[2023-10-20] MEDS: Famotidine/PF 20 MG/2 ML VIAL IVPUSH ×2 (13:33→20:18)
[2023-10-20] MEDS: ceFAZolin Sodium/Dextrose,Iso 2 GM/50 ML PIGGYBACK IV (15:20)
[2023-10-20] MEDS: Acetaminophen 1,000 MG/100 ML PIGGYBACK 16.7 MG IV ×2 (17:21→22:38)
[2023-10-20] MEDS: 0.9 % Sodium Chloride Flush 3 ML SYRINGE IVFLUSH (20:18)
[2023-10-21 04:00] VITALS: BP 132/73; PULSE 81; RESP 18; TEMP 36; O2SAT 99
[2023-10-21] MEDS: Acetaminophen 1,000 MG/100 ML PIGGYBACK 16.7 MG IV (04:27)
[2023-10-21 06:11] LABS: MANUAL DIFF FLAG NO
[2023-10-21 06:29] LABS: Basophils Percent Auto 0.1 % (0-2); Hemoglobin 12.1 g/dl (12.0-16.0); Imm Gran Abs Auto 0.05 X10*3/uL (0.00-0.03); Imm Gran Pct Auto 0.5 % (0.0-0.4); Lymphocytes Absolute Auto 1.1 X10*3/uL (1.2-4.9); Lymphocytes Percent Auto 11.4 % (20-40); Mean Corpuscular HGB Conc 32.7 g/dl (31.0-35.0); Mean Corpuscular Hemoglobin 25.9 pg (27.0-33.0); Mean Corpuscular Volume 79.1 fL (80.0-98.0); Mean Platelet Volume 10.4 fL (9.4-12.3); Monocytes Absolute Auto 0.2 X10*3/uL (0.1-1.2); Monocytes Percent Auto 2.3 % (2-11); Neutrophils Absolute Auto 8.4 x10*3/uL (2.0-8.3); Neutrophils Percent Auto 85.7 % (45-73); Platelet Count 300 X10*3/uL (160-400); Red Blood Count 4.68 X10*6/uL (4.20-5.50); Red Cell Distribution Width 13.9 % (11.0-16.0); White Blood Count 9.8 X10*3/uL (4.8-10.8)
[2023-10-21 06:30] LABS: Anion Gap 16 (12-20); Blood Urea Nitrogen 8 mg/dL (9-16); Calcium 9.1 mg/dL (8.4-10.2); Carbon Dioxide 21 mmol/L (22-29); Chloride 105 mmol/L (96-108); Creatinine Clr Calc Pharmacy 197.5; Estimated Glomerular Filt Rate > 60; Glucose Random 114 mg/dL (60-115); Sodium 138 mmol/L (135-145)
[2023-10-21 07:25] VITALS: BP 109/56; PULSE 92; RESP 18; TEMP 36.2; O2SAT 95
[2023-10-21] MEDS: Famotidine/PF 20 MG/2 ML VIAL IVPUSH (08:09)
--- NOTE | 2023-10-21 10:40 | MHC.CM.PN ---
Patient left the hospital prior to being seen by case management. She was discharged to home self care. She arranged for transportation home.
--- NOTE | 2023-10-22 06:43 | HO.POSTANES ---
Post Anesthesia Evaluation Post Anesthesia Evaluation Date of Service: 10/21/23 Vital Signs: Patient seen at 745am 10/21/2023 109/56, 92, 18, 97.2F, 95%RA Anesthesia: General Endotracheal-GETA Mental Status: Awake Pain Control: Satisfactory Nausea/Vomiting: None Hydration: Adequate Anesthesia-Related Issues: No Anes. Related Issues
== END 2023-10-21 10:12 | disposition home or self-care (01) | DRG 621 ==
LOC: HO.SSSA 08:03 → HO.S3 16:09
PROVIDERS: Nurse Practitioner; Physician Assistant; Admitting Provider Surgery; Visit Provider Surgery
PROC: 0DB64Z3 Excision of Stomach, Percutaneous Endoscopic Approach, Vertical (ICD-10-PCS; CPT 43845; principal; 2023-10-20 08:20)
DX: E66.01 Morbid (severe) obesity due to excess calories (principal); K74.00 Hepatic fibrosis, unspecified; K21.9 Gastro-esophageal reflux disease without esophagitis; K76.0 Fatty (change of) liver, not elsewhere classified; Z68.43 Body mass index [BMI] 50.0-59.9, adult; Z79.899 Other long term (current) drug therapy
CPT/HCPCS: 36415; 80048; 81025; 85014; 85018; 85025; 86850; 86900; 86901; 88304; 88305; 88307; 88342; 99024; A4649; C9145; J0131; J0690; J1100; J1170; J2250; J2371; J2405; J2704; J2795; J3010; J7120

== ENCOUNTER → 2023-10-20 06:44 | Outpatient (BNV) | payer OTHER, SELFPAY | PROVIDERS: Admitting Provider Surgery; Visit Provider Surgery | DX: E66.01 Morbid (severe) obesity due to excess calories (principal); Z68.43 Body mass index [BMI] 50.0-59.9, adult | CPT/HCPCS: 43659; 43775; 99024 ==

== ENCOUNTER 2023-10-28 14:01 | Outpatient (AMB) | payer OTHER, SELFPAY ==
--- NOTE | 2023-10-28 14:35 | A.OFFVIS_ITS ---
Intake VS Expanded 10/28/23 14:45 BP 121/68 Blood Pressure Location Rt brachial Blood Pressure Position Sitting Pulse 84 Pulse Source Pulse Oximeter Temp 97.7 F Temperature Source Temporal Artery Scan Pulse Oximetry 95 Oxygen Delivery Method Room Air Height 5 ft 6 in Weight 311 lb 9.6 oz BMI 50.3 Body Fat % 52.3 Body Fat Mass 163.0 Fat Free Mass 148.6 Visceral Fat Rating 17.0 Body Water % 34.3 Body Water Mass 107.0 Muscle Mass/Score 141.0 Basal Metabolic Rate/Score 2,198 Intake Visit Reasons: (OV) PO LSG 10/20/23 Allergies No Known Allergies Allergy (Verified 10/28/23 15:05) HPI HPI Comments History of Present Illness Details Very pleasant 28-year-old female returns to the office today in follow- up. Postop day 8, status post sleeve gastrectomy performed on 10/20/2023. Her meal plan is increasing today to 2 celebrate 4 in 1 shakes with 2 scoops each and 1 premier protein shake with 2 scoops. She is tolerating 30 oz of fluid without complaints of dizziness or lightheadedness. Upon review, she was drinking 1 oz in 15 minutes and then waiting 15 minutes and then drinking another oz. she misunderstood the direction. She has been keeping very detailed records of her fluid intake and upon correction of having to wait between oz, I suspect that she will do very well. She has moved her bowels and is overall very satisfied with how she is doing. [facility] Medical History (Updated 10/24/23 @ 00:03 by Lisa Helm) Asthma Surgical History (Updated 10/28/23 @ 15:05 by Grace Campbell CMA) S/P laparoscopic sleeve gastrectomy History of esophagogastroduodenoscopy (EGD) Hx of wisdom tooth extraction Family History Mother Thyroid disease Father Cancer High cholesterol Hypertension Diabetes Sister No problems noted. Sister No problems noted. Brother Cirrhosis Social History Household Members: None Housing: Apartment Are you a primary hemodialysis patient care specialist to a significant other at home: No Do you presently have visiting nurse or other home services: No Alcohol intake: current Alcohol intake frequency: does not drink Patient Tobacco Use Status: Never used Tobacco Physical Exam Vital Signs: Last Vital Signs Temp 97.7 F 10/28/23 14:45 Pulse 84 10/28/23 14:45 BP 121/68 10/28/23 14:45 Pulse Ox 95 10/28/23 14:45 Oxygen Delivery Method Room Air 10/28/23 14:45 BMI result Body Mass Index 50.3 GI Other: Minimal incisional ecchymosis. Clean, dry, intact. Assessment & Plan Assessment & Plan (1) S/P laparoscopic sleeve gastrectomy: Code(s): Z98.84 - Bariatric surgery status Plan: POD 8 s/p LSG on 10/20/[address] Montoya Weight loss prior to surgery was 36.9 pounds or 10.1 % TBWL. Original weight on 04/21/2023 was 364 pounds and op weight was 327.1 pounds. Be sure to text Dr Montoya exactly 1 week after surgery your weight from your home scale so he can adjust your meal plan. Continue meal plan until f/u w Grace in 2 weeks May shower, no submersion in bath for another week Continue abdominal binder with activity and exercise for the next 2 weeks. Exercise prior to surgery was walking and Linda Lal videos, may resume No abdominal exercises for 6 weeks post operatively Will be emailed link to post op video for review Reminded of the pace of drinking, 2 mL per minute, 1 oz/15 min. She does not need to pause between oz and I suspect that she will be able to drink a normal amount. She is hemodynamically stable and without symptomatic complaints. Coding Level of Care Code Global (06848) Diagnoses S/P laparoscopic sleeve gastrectomy Z98.84
[2023-10-28 14:45] VITALS: BP 121/68; PULSE 84; TEMP 36.5; O2SAT 95; BMI 50.3
== END 2023-10-28 16:20 | disposition home or self-care (01) ==
PROVIDERS: Visit Provider Physician Assistant Surgical
DX: E66.01 Morbid (severe) obesity due to excess calories (principal); Z68.43 Body mass index [BMI] 50.0-59.9, adult; Z90.3 Acquired absence of stomach [part of]; Z98.84 Bariatric surgery status
CPT/HCPCS: 99024

== ENCOUNTER → 2023-10-28 14:01 | Outpatient (BNVA) | payer OTHER, SELFPAY | PROVIDERS: Visit Provider Physician Assistant Surgical ==

== ENCOUNTER 2023-11-12 14:30 | Outpatient (AMB) | payer OTHER, SELFPAY ==
--- NOTE | 2023-11-12 14:21 | MHC.OFFVISWM ---
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 No pain or reflux,n or vomiting. Meal plan per Dr Landaverde: wakes up at 7am 8am - 4:1 shake 2 scoops UAM 11 am - 4:1 shake 2 scoops 2pm- Premier powder shake (not having this shake - felt too much for her) 5 pm- Quest Solvate Exercise - treadmill 5d/ week 45 minutes, speed 2.8 - 3.5, incline up to 4 - , calories burned 350 calories [facility] Medical History (Updated 10/24/23 @ 00:03 by Lisa Helm) Asthma Surgical History (Updated 10/28/23 @ 15:05 by Grace Campbell CMA) S/P laparoscopic sleeve gastrectomy History of esophagogastroduodenoscopy (EGD) Hx of wisdom tooth extraction Family History Mother Thyroid disease Father Cancer High cholesterol Hypertension Diabetes Sister No problems noted. Sister No problems noted. Brother Cirrhosis Social History Household Members: None Housing: Apartment Are you a primary respiratory care instructor to a significant other at home: No Do you presently have visiting nurse or other home services: No Alcohol intake: current Alcohol intake frequency: does not drink Patient Tobacco Use Status: Never used Tobacco Assessment & Plan Assessment & Plan (1) S/P laparoscopic sleeve gastrectomy: Code(s): Z98.84 - Bariatric surgery status Plan: Wants some changes to meal plan, but not food yet. BM's every 4 days -hard to pass. Going on a cruise on December 11. 10 am 4:1 2 scoops 2pm -same shake 6pm - bar Treadmill - speed 3.0, incline 0 - 6 (3 minutes) - 400 calories 5d/ week. Will take fiber tablets now bid. Will text me on Tuesdays. Next appt with me in 4 weeks. Medications: New inulin (Fiber Gummies) 2 grams PO BID 180 tabs 1RF Telehealth Telehealth Location of provider rendering services: practice address Location of patient: address on file Patient Identification confirmed using: Name, : Yes Telehealth method: video Patient verbally consented to treatment: Yes Patient verbally consented to billing insurance company: Yes Patient informed of any privacy concerns related to visit: Yes Coding Level of Care Code Global (60955) Diagnoses S/P laparoscopic sleeve gastrectomy Z98.84
[2023-11-12 14:34] VITALS: BMI 48.8
== END 2023-11-12 14:56 | disposition home or self-care (01) ==
LOC: HO.HBS 14:49
PROVIDERS: Visit Provider Physician Assistant
DX: Z98.84 Bariatric surgery status (principal)
CPT/HCPCS: 99024

== ENCOUNTER → 2023-11-12 14:30 | Outpatient (BNVA) | payer OTHER, SELFPAY | PROVIDERS: Visit Provider Physician Assistant ==

== ENCOUNTER 2023-12-09 15:02 | Outpatient (AMB) | payer OTHER, SELFPAY ==
--- NOTE | 2023-12-09 15:04 | MHC.OFFVISWM ---
Intake VS Expanded 12/09/23 15:12 BP 110/64 Blood Pressure Location Rt brachial Blood Pressure Position Sitting Pulse 74 Pulse Source Pulse Oximeter Temp 96.7 F L Temperature Source Temporal Artery Scan Pulse Oximetry 98 Oxygen Delivery Method Room Air Height 5 ft 6 in Weight 290 lb 6.4 oz BMI 46.9 Body Fat % 49.2 Body Fat Mass 142.8 Fat Free Mass 147.4 Visceral Fat Rating 14.0 Body Water % 36.4 Body Water Mass 105.8 Muscle Mass/Score 140.0 Basal Metabolic Rate/Score 2,150 Intake Visit Reasons: (OV) PO LSG 10/20/23 Allergies No Known Allergies Allergy (Verified 12/09/23 15:07) Medication List - Last Reconciled 12/09/23 by Grace Porter PA-C inulin (Fiber Gummies) 2 grams PO BID pantoprazole 40 mg PO DAILY@0630 sucralfate 10 mL PO BID HPI HPI Comments History of Present Illness Details 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 Going on a cruise on December 11. No n/v no abd pain or reflux. Her deermatologist is starting her on spironolactone for PCOS. Mealplan: 9 am 4:1 2 scoops 12pm -same shake 3pm - Premeier powder 1 scoop 6pm - bar Treadmill - speed 3.0, incline 0 - 8 (3 minutes) - 350 calories - only 1-3 d/week. [facility] Medical History Asthma Surgical History S/P laparoscopic sleeve gastrectomy History of esophagogastroduodenoscopy (EGD) Hx of wisdom tooth extraction Family History Mother Thyroid disease Father Cancer High cholesterol Hypertension Diabetes Sister No problems noted. Sister No problems noted. Brother Cirrhosis Social History Household Members: None Housing: Apartment Are you a primary hospice care consultant to a significant other at home: No Do you presently have visiting nurse or other home services: No Alcohol intake: current Alcohol intake frequency: does not drink Patient Tobacco Use Status: Never used Tobacco Assessment & Plan Assessment & Plan (1) S/P laparoscopic sleeve gastrectomy: Code(s): Z98.84 - Bariatric surgery status Plan: 7 weeks post op LSG, going on a cruise next week and wants to be able to eat some solid food. Meal plan: will try either 1 oz scrambled egg, yi yogurt or cottage cheese once per day along her 3 shakes and 1 bar. Exercise: change treadmill to 7 d/week for 300 calories. Nextappt week of December 20 with me. Coding Level of Care Code Global (07055) Diagnoses S/P laparoscopic sleeve gastrectomy Z98.84
[2023-12-09 15:12] VITALS: BP 110/64; PULSE 74; TEMP 35.9; O2SAT 98; BMI 46.9
== END 2023-12-09 15:35 | disposition home or self-care (01) ==
PROVIDERS: Visit Provider Physician Assistant
DX: Z98.84 Bariatric surgery status (principal)
CPT/HCPCS: 99024

== ENCOUNTER → 2023-12-09 15:02 | Outpatient (BNVA) | payer OTHER, SELFPAY | PROVIDERS: Visit Provider Physician Assistant | DX: Z98.84 Bariatric surgery status (principal) ==

== ENCOUNTER 2023-12-30 13:46 | Outpatient (AMB) | payer OTHER, SELFPAY ==
--- NOTE | 2023-12-30 13:49 | MHC.OFFVISWM ---
Intake VS Expanded 12/30/23 13:56 BP 101/58 L Blood Pressure Location Rt brachial Blood Pressure Position Sitting Pulse 77 Pulse Source Pulse Oximeter Temp 97.0 F Temperature Source Tympanic Pulse Oximetry 96 Oxygen Delivery Method Room Air Height 5 ft 7 in Weight 278 lb 6.4 oz BMI 43.6 Body Fat % 48.0 Body Fat Mass 133.6 Fat Free Mass 144.6 Visceral Fat Rating 13.0 Body Water % 37.3 Body Water Mass 103.8 Muscle Mass/Score 137.4 Basal Metabolic Rate/Score 2,096 Intake Visit Reasons: (OV) PO LSG 10/20/23 Allergies No Known Allergies Allergy (Verified 12/30/23 14:10) Medication List - Last Reconciled 12/30/23 by Grace Porter PA-C calcium citrate-vitamin D3 315 mg-5 mcg (200 unit) (Calcium Citrate + D) 1 tab PO BID inulin (Fiber Gummies) 2 grams PO BID pantoprazole 40 mg PO DAILY@0630 sucralfate 10 mL PO BID HPI HPI Comments History of Present Illness Details 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 she has lsot 12 lbs over last 3 weeks. Meal plan - treadmill - 4d/week, speed 3.0, incline 1-8 , every minutes - rock 420 over 35 minutes. Other days when she walks her dog - walks for 300 calories. meal plan: 9am - 4:1 2 scoops UAM 12 pm - same shake 3pm - Premier 1 scoop 6pm - bar Quest Went on a curise and did NOT eat food. [facility] Medical History Asthma Surgical History S/P laparoscopic sleeve gastrectomy History of esophagogastroduodenoscopy (EGD) Hx of wisdom tooth extraction Family History Mother Thyroid disease Father Cancer High cholesterol Hypertension Diabetes Sister No problems noted. Sister No problems noted. Brother Cirrhosis Social History Household Members: None Housing: Apartment Are you a primary direct care provider to a significant other at home: No Do you presently have visiting nurse or other home services: No Alcohol intake: current Alcohol intake frequency: does not drink Patient Tobacco Use Status: Never used Tobacco Assessment & Plan Assessment & Plan (1) Morbid obesity: Code(s): E66.01 - Morbid (severe) obesity due to excess calories Plan: Exercise - walk- 1.5 miles in 30 minutes. - 20 minute mile, over 300 calories. OR 2 miles in 40 minutes. Treadmill - speed 3.0, incline 3-10 >450 darcy - goal 500 darcy Meal plan - starting in 2 weeks, 100 grams 9am - 4:1 2 scoops 1:30 pm - bar now - in 2 weeks can start 1 oz scrambed egg or yogurt/cc, 1 o forsk 2 forks of chicken or fish 5 pm - shake 9pm - shake Next appt in 4 weeks with PA. (2) S/P laparoscopic sleeve gastrectomy: Code(s): Z98.84 - Bariatric surgery status Plan: see above Medications: New calcium citrate-vitamin D3 315 mg-5 mcg (200 unit) (Calcium Citrate + D) 1 tab PO BID 180 tabs 3RF Coding Level of Care Code Global (01576) Diagnoses Morbid obesity E66.01 S/P laparoscopic sleeve gastrectomy Z98.84
[2023-12-30 13:56] VITALS: BP 101/58; PULSE 77; TEMP 36.1; O2SAT 96; BMI 43.6
== END 2023-12-30 14:33 | disposition home or self-care (01) ==
PROVIDERS: Visit Provider Physician Assistant
DX: E66.01 Morbid (severe) obesity due to excess calories (principal); Z98.84 Bariatric surgery status
CPT/HCPCS: 99024

== ENCOUNTER → 2023-12-30 13:46 | Outpatient (BNVA) | payer OTHER, SELFPAY | PROVIDERS: Visit Provider Physician Assistant | DX: Z98.84 Bariatric surgery status (principal) ==

== ENCOUNTER 2024-04-04 09:27 | Outpatient (REF) | payer OTHER, SELFPAY ==
[2024-04-04 10:03] LABS: MANUAL DIFF FLAG NO
[2024-04-04 11:02] LABS: Basophils Percent Auto 0.6 % (0-2); Eosinophils Absolute Auto 0.1 X10*3/uL (0.0-0.4); Eosinophils Percent Auto 0.9 % (0-4); Hematocrit 41.2 % (37.0-47.0); Hemoglobin 13.5 g/dl (12.0-16.0); Imm Gran Abs Auto 0.01 X10*3/uL (0.00-0.03); Imm Gran Pct Auto 0.2 % (0.0-0.4); Lymphocytes Absolute Auto 2.3 X10*3/uL (1.2-4.9); Lymphocytes Percent Auto 36.4 % (20-40); Mean Corpuscular HGB Conc 32.8 g/dl (31.0-35.0); Mean Corpuscular Hemoglobin 26.9 pg (27.0-33.0); Mean Corpuscular Volume 82.1 fL (80.0-98.0); Mean Platelet Volume 10.9 fL (9.4-12.3); Monocytes Absolute Auto 0.5 X10*3/uL (0.1-1.2); Monocytes Percent Auto 7.9 % (2-11); Neutrophils Absolute Auto 3.4 x10*3/uL (2.0-8.3); Platelet Count 310 X10*3/uL (160-400); Red Blood Count 5.02 X10*6/uL (4.20-5.50); Red Cell Distribution Width 14.9 % (11.0-16.0); White Blood Count 6.3 X10*3/uL (4.8-10.8)
[2024-04-04 11:17] LABS: Estimated Average Glucose 91 mg/dL; Hemoglobin A1c % 4.8 % (<6.0)
[2024-04-04 11:51] LABS: Alanine Aminotransferase 15 U/L (0-31); Albumin Level 3.9 g/dL (3.5-5.0); Alkaline Phosphatase 130 U/L (39-117); Anion Gap 16 (12-20); Aspartate Amino Transferase 17 U/L (5-31); Bilirubin Total 0.5 mg/dL (0.0-1.0); Blood Urea Nitrogen 14 mg/dL (9-16); C Reactive Protein 0.37 mg/dL (< or = 0.50); Calcium 9.8 mg/dL (8.4-10.2); Carbon Dioxide 22 mmol/L (22-29); Chloride 106 mmol/L (96-108); Cholesterol 163 mg/dL (<200); Estimated Glomerular Filt Rate > 60; Glucose Random 75 mg/dL (60-115); HDL Cholesterol 25 mg/dL (>40); LDL Cholesterol Calculated 119 mg/dL (<100); Potassium 3.6 mmol/L (3.3-5.1); Sodium 140 mmol/L (135-145); Total Protein 7.4 g/dL (6.5-8.0); Triglycerides 97 mg/dL (<150)
[2024-04-04 11:58] LABS: TSH reflex Free T4 1.87 uIU/mL (0.32-4.0)
== END 2024-04-04 09:28 | disposition home or self-care (01) ==
LOC: HO.LAB 09:27
PROVIDERS: Visit Provider Surgery
DX: E66.01 Morbid (severe) obesity due to excess calories (principal); R79.89 Other specified abnormal findings of blood chemistry; K76.0 Fatty (change of) liver, not elsewhere classified
CPT/HCPCS: 36415; 80053; 80061; 83036; 84443; 85025; 86140; 86850; 86900; 86901

== ENCOUNTER → 2024-04-06 13:14 | Outpatient (BNVA) | payer OTHER, SELFPAY | PROVIDERS: Visit Provider Physician Assistant Surgical ==

== ENCOUNTER 2024-04-28 15:17 | Outpatient (REF) | payer OTHER, SELFPAY ==
[2024-04-28 17:42] LABS: Iron 39 mcg/dL (30-160); Percent Iron Saturation 14 % (15-50); Total Iron Binding Capacity 275 mcg/dL (228-428); Unsaturated Iron Binding 236 ug/dL
[2024-04-28 17:57] LABS: Ferritin 170 ng/mL (10-122); Vitamin D 25-OH Total 63.1 ng/mL (>30)
[2024-04-28 18:12] LABS: Folate 8.1 ng/mL (> or = 4.0); Vitamin B12 996 pg/mL (200-900)
[2024-05-03 01:38] LABS: Zinc 56 mcg/dL (60-130)
[2024-05-04 16:54] LABS: Vitamin A 48 mcg/dL (38-98)
== END 2024-04-28 15:18 | disposition home or self-care (01) ==
LOC: HO.LAB 15:17
PROVIDERS: Visit Provider Physician Assistant Surgical
DX: E66.9 Obesity, unspecified (principal); Z98.84 Bariatric surgery status
CPT/HCPCS: 36415; 82306; 82607; 82728; 82746; 83540; 84425; 84590; 84630

== ENCOUNTER 2024-05-27 11:02 | Outpatient (AMB) | payer OTHER, SELFPAY ==
[2024-05-27 09:31] VITALS: BMI 32.1
--- NOTE | 2024-05-27 09:31 | A.OFFVIS_ITS ---
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 Presents for 7 month post op visit. Weight today is 205 pounds, with a BMI of 32.1. There has been a 159 pound weight loss,(initial weight 364 pounds) since starting the program on 04/21/2023 reflecting a 43.6 % total body weight loss and a weight loss of 122.1 pounds since surgery (operative weight 327.1 pounds) reflecting a 37.3 % TBWL since surgery. No complaints of nausea, emesis, abdominal pain or reflux. Reports infrequent but normal bowel movements every 1- 2 days and uses stool softeners regularly. Following meal plan by Dr Landaverde Last week she was travelling and she would have one meal (following the blaise - 5 forks of protein and 5 forks veg). Didn't do the bar during that time. Present meal plan includes: Celebrate 4 in 1 2 scoops x 2 at 8-10, 11-1 Premier protein 1 scoop 2-4 Quest protein bar 5-8 Drinking 55-68 oz water ? Exercise routine includes: walking treadmill 3 x per week, 450-550 calories walking outside 2 x per week, 450 PFSH Medical History Asthma Surgical History S/P laparoscopic sleeve gastrectomy History of esophagogastroduodenoscopy (EGD) Hx of wisdom tooth extraction Family History Mother Thyroid disease Father Cancer High cholesterol Hypertension Diabetes Sister No problems noted. Sister No problems noted. Brother Cirrhosis Social History Household Members: None Housing: Apartment Are you a primary college and career counselor to a significant other at home: No Do you presently have visiting nurse or other home services: No Alcohol intake: current Alcohol intake frequency: does not drink Patient Tobacco Use Status: Never used Tobacco Telehealth Telehealth Telehealth Platform: Telephone Location of provider rendering services: practice address Location of patient: address on file Patient Identification confirmed using: Name, : Yes Telehealth method: voice only Patient verbally consented to treatment: Yes Patient verbally consented to billing insurance company: Yes Patient informed of any privacy concerns related to visit: Yes Minutes spent on Phone/Video with Pt.: 15 Assessment & Plan Assessment & Plan (1) Obesity (BMI 30-39.9): Code(s): E66.9 - Obesity, unspecified Category: Medical Plan: Patient is doing well. She was away on vacation last week and had a meal. During that. She did not have her protein bar at the end of the day. She will resume her meal plan as listed above. Return to exercise as she has been doing. We will have her return to the office in approximately 1 month. She may want to incorporate food at that time. We will discuss this with her at that time. Orders: Orders Zinc 07/12/24 E60 - Dietary zinc deficiency
== END 2024-05-27 11:33 | disposition home or self-care (01) ==
LOC: HO.HBS 11:02
PROVIDERS: Visit Provider Physician Assistant Surgical
DX: E66.9 Obesity, unspecified (principal); Z68.32 Body mass index [BMI] 32.0-32.9, adult; Z90.3 Acquired absence of stomach [part of]; Z98.84 Bariatric surgery status
CPT/HCPCS: 99213

== ENCOUNTER → 2024-05-27 11:02 | Outpatient (BNVA) | payer OTHER, SELFPAY | PROVIDERS: Visit Provider Physician Assistant Surgical | DX: Z98.84 Bariatric surgery status (principal); E66.9 Obesity, unspecified ==

== ENCOUNTER 2024-07-29 08:52 | Outpatient (AMB) | payer OTHER, SELFPAY ==
--- NOTE | 2024-07-29 08:56 | A.OFFVIS_ITS ---
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 Presents for 9 month post op visit. Weight today is 187.2 pounds, with a BMI of 29.3. There has been a 176.8 pound weight loss,(initial weight 364 pounds) since starting the program on 04/21/2023 reflecting a 48.5 % total body weight loss and a weight loss of 139.9 pounds since surgery (operative weight 327.1 pounds) reflecting a 42.7 % TBWL since surgery. No complaints of nausea, emesis, abdominal pain or reflux. Reports infrequent but normal bowel movements every 1-2 days and uses stool softeners regularly. Following meal plan by Dr Landaverde Last week she was travelling and she would have one meal (following the blaise - 5 forks of protein and 5 forks veg). Didn't do the bar during that time. For the last 2 weeks she has been busy and stopped the celebrate protein shakes. SHe has continued the premier protein 1 scoop x 1 and a protein bar and a meal not counting. Wants to lose about 20 pounds more. Doesn't want to do the celebrate shakes Present meal plan includes: Celebrate 4 in 1 2 scoops x 2 at 8-10, 11-1 Premier protein 1 scoop 2-4 Quest protein bar 5-8 Drinking 55-68 oz water ? Exercise routine includes: walking treadmill 3 x per week, 350 calories walking outside 2 x per week, 300-350 calories weight training 2 x per week, 300 calories PFSH Medical History Asthma Surgical History S/P laparoscopic sleeve gastrectomy History of esophagogastroduodenoscopy (EGD) Hx of wisdom tooth extraction Family History Mother Thyroid disease Father Cancer High cholesterol Hypertension Diabetes Sister No problems noted. Sister No problems noted. Brother Cirrhosis Social History Household Members: None Housing: Apartment Are you a primary healthcare economics consultant to a significant other at home: No Do you presently have visiting nurse or other home services: No Alcohol intake: current Alcohol intake frequency: does not drink Patient Tobacco Use Status: Never used Tobacco Physical Exam Const General: healthy appearing and no acute distress Resp Effort & Inspection: normal respiratory effort Auscultation: clear to auscultation bilaterally Cardio Rate: regular rate Rhythm: regular rhythm GI Auscultation: normal bowel sounds Extrem General: Yes normal to inspection Assessment & Plan Assessment & Plan (1) S/P laparoscopic sleeve gastrectomy: Code(s): Z98.84 - Bariatric surgery status Category: Surgical Plan: She wishes to change her meal plan to incorporate food. We will give her several options: Fair life 26 g or 30 g ready to drink shake Premier protein 1 scoop Meal with 6 forks protein and 6 forks vegetables Or Premier protein 1 scoop Tamazight yogurt Premier protein 1 scoop Meal 6 forks protein and 6 forks veggies. She may have half cup fresh berries or apple if she wishes. Add bariatric multivitamin and calcium plus D Goal 400-500 calories burned daily at the gym. rtc 1 month
[2024-07-29 09:00] VITALS: BP 109/61; PULSE 68; TEMP 36.4; O2SAT 100; BMI 29.3
== END 2024-07-29 09:26 | disposition home or self-care (01) ==
PROVIDERS: Visit Provider Physician Assistant Surgical
DX: E66.3 Overweight (principal); Z68.29 Body mass index [BMI] 29.0-29.9, adult; Z90.3 Acquired absence of stomach [part of]; Z98.84 Bariatric surgery status
CPT/HCPCS: 99213

== ENCOUNTER → 2024-07-29 08:52 | Outpatient (BNVA) | payer OTHER, SELFPAY | PROVIDERS: Visit Provider Physician Assistant Surgical | DX: Z98.84 Bariatric surgery status (principal); E66.9 Obesity, unspecified; E60 Dietary zinc deficiency ==

== ENCOUNTER 2024-10-03 09:30 | Outpatient (AMB) | payer OTHER, SELFPAY ==
--- NOTE | 2024-10-03 08:59 | MHC.OFFVISWM ---
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 Presents for 1 year post op visit. Weight today is 178.5 pounds, with a BMI of 27.9. There has been a 185.5 pound weight loss,(initial weight 364 pounds) since starting the program on 04/21/2023 reflecting a 50.9 % total body weight loss and a weight loss of 148.6 pounds since surgery (operative weight 327.1 pounds) reflecting a 45.4 % TBWL since surgery. No complaints of nausea, emesis, abdominal pain or reflux. Reports infrequent but normal bowel movements every 1-2 days and uses stool softeners regularly. Following meal plan by Dr Garsia Using Imagistx MVI daily and Andrew + D. She is complaining of excess skin of her stomach and arms. She would get rash to her stomach under the skin fold and at the umbilicus. She would have discomfort, pain and itch. She has also noticed increased odor requiring additional hygiene. She has tried to use OTC creams, but min effect. She has not used Rx medication. Present meal plan includes: Tilkee life 26 g ready to drink shake quest bar ratio pro yogurt Meal with 6-9 forks protein and 6 forks vegetables Drinking 55-68 oz water ? Exercise routine includes: walking treadmill 3 x per week, incline 8 speed 3.5, 450-480 calories weight training 2 x per week, 300 calories Any post op complications: none ROJAS: never DM: never HTN: never Hyperlipidemia: never GERD:?0-5 scale ??0 = no symptoms ??1 = symptoms noticeable but not bothersome 2 =symptoms bothersome but not daily ? 3 = symptoms bothersome and daily 4 = symptoms affect daily activities 5 = symptoms are incapacitating, unable to do daily activities ? How bad is the heartburn: 0 ? Heartburn while lying down: 0 ? Heartburn when standing up: 0 ? Heartburn after meals: 0 ? Does heartburn change your diet: 0 ? Does heartburn wake you up from sleep: 0 ? Do you have difficulty swallowin ? Do you have pain with swallowin ? If you take medicine for your reflux, does this affect your daily life: 0 Satisfaction with present condition - satisfied or not satisfied: not satisfied, wants to lose more weight PFSH Medical History Asthma Surgical History S/P laparoscopic sleeve gastrectomy History of esophagogastroduodenoscopy (EGD) Hx of wisdom tooth extraction Family History Mother Thyroid disease Father Cancer High cholesterol Hypertension Diabetes Sister No problems noted. Sister No problems noted. Brother Cirrhosis Social History Household Members: None Housing: Apartment Are you a primary point of care specialist to a significant other at home: No Do you presently have visiting nurse or other home services: No Alcohol intake: current Alcohol intake frequency: does not drink Patient Tobacco Use Status: Never used Tobacco Telehealth Telehealth Telehealth Platform: Telephone Location of provider rendering services: practice address Location of patient: other Patient Identification confirmed using: Name, : Yes Telehealth method: voice only Patient verbally consented to treatment: Yes Patient verbally consented to billing insurance company: Yes Patient informed of any privacy concerns related to visit: Yes Minutes spent on Phone/Video with Pt.: 15 Assessment & Plan Assessment & Plan (1) S/P laparoscopic sleeve gastrectomy: Code(s): Z98.84 - Bariatric surgery status Category: Surgical Plan: Check yearly follow-up labs. Continue multivitamin and calcium plus D. Recommend change meal plan: Fair life 26 g ready to drink shake quest bar Kinyarwanda yogurt Meal with 6 forks protein and 8 forks vegetables Recommend increase exercise to 4-5 times per week, adding weight training prior to cardio (2) Excess skin: Code(s): L98.7 - Excessive and redundant skin and subcutaneous tissue Category: Medical Plan: Patient has lost greater than 50% of her total body weight since initiating the program in 04/30/2023. As a result, she has excess skin of her abdomen and arms. She notes rash, pain, itch, odor. She has had increase her hygiene. She has not tried any prescriptive medications and I will send in clotrimazole. Discussed strategies to improve skin health including clothing barriers and keeping it dry. We will continue to monitor although she likely is going to need medically necessary skin removal surgery of her abdomen at least and likely her arms as well based on her significant weight loss and significant excess skin as well as it is negative impact on her health, activities of daily living and overall comfort. Orders: Orders Complete Blood Count Auto Diff Today E60 - Dietary zinc deficiency, K74.00 - Hepatic fibrosis, unspecified, K76.0 - Fatty (change of) liver, not elsewhere classified, R79.89 - Other specified abnormal findings of blood chemistry, Z98.84 - Bariatric surgery status IRON PROFILE Today E60 - Dietary zinc deficiency, K74.00 - Hepatic fibrosis, unspecified, K76.0 - Fatty (change of) liver, not elsewhere classified, R79.89 - Other specified abnormal findings of blood chemistry, Z98.84 - Bariatric surgery status Comprehensive Met. Panel Today E60 - Dietary zinc deficiency, K74.00 - Hepatic fibrosis, unspecified, K76.0 - Fatty (change of) liver, not elsewhere classified, R79.89 - Other specified abnormal findings of blood chemistry, Z98.84 - Bariatric surgery status TSH reflex Free T4 Today E60 - Dietary zinc deficiency, K74.00 - Hepatic fibrosis, unspecified, K76.0 - Fatty (change of) liver, not elsewhere classified, R79.89 - Other specified abnormal findings of blood chemistry, Z98.84 - Bariatric surgery status Ferritin Today E60 - Dietary zinc deficiency, K74.00 - Hepatic fibrosis, unspecified, K76.0 - Fatty (change of) liver, not elsewhere classified, R79.89 - Other specified abnormal findings of blood chemistry, Z98.84 - Bariatric surgery status Insulin Today E60 - Dietary zinc deficiency, K74.00 - Hepatic fibrosis, unspecified, K76.0 - Fatty (change of) liver, not elsewhere classified, R79.89 - Other specified abnormal findings of blood chemistry, Z98.84 - Bariatric surgery status Hemoglobin A1c Today E60 - Dietary zinc deficiency, K74.00 - Hepatic fibrosis, unspecified, K76.0 - Fatty (change of) liver, not elsewhere classified, R79.89 - Other specified abnormal findings of blood chemistry, Z98.84 - Bariatric surgery status Lipid Panel Today E60 - Dietary zinc deficiency, K74.00 - Hepatic fibrosis, unspecified, K76.0 - Fatty (change of) liver, not elsewhere classified, R79.89 - Other specified abnormal findings of blood chemistry, Z98.84 - Bariatric surgery status Vitamin B12 and Folate Today E60 - Dietary zinc deficiency, K74.00 - Hepatic fibrosis, unspecified, K76.0 - Fatty (change of) liver, not elsewhere classified, R79.89 - Other specified abnormal findings of blood chemistry, Z98.84 - Bariatric surgery status Zinc Today E60 - Dietary zinc deficiency, K74.00 - Hepatic fibrosis, unspecified, K76.0 - Fatty (change of) liver, not elsewhere classified, R79.89 - Other specified abnormal findings of blood chemistry, Z98.84 - Bariatric surgery status C Reactive Protein Today E60 - Dietary zinc deficiency, K74.00 - Hepatic fibrosis, unspecified, K76.0 - Fatty (change of) liver, not elsewhere classified, R79.89 - Other specified abnormal findings of blood chemistry, Z98.84 - Bariatric surgery status Vitamin B1 Today E60 - Dietary zinc deficiency, K74.00 - Hepatic fibrosis, unspecified, K76.0 - Fatty (change of) liver, not elsewhere classified, R79.89 - Other specified abnormal findings of blood chemistry, Z98.84 - Bariatric surgery status Vitamin A Today E60 - Dietary zinc deficiency, K74.00 - Hepatic fibrosis, unspecified, K76.0 - Fatty (change of) liver, not elsewhere classified, R79.89 - Other specified abnormal findings of blood chemistry, Z98.84 - Bariatric surgery status Vitamin D 25-OH Total Today E60 - Dietary zinc deficiency, K74.00 - Hepatic fibrosis, unspecified, K76.0 - Fatty (change of) liver, not elsewhere classified, R79.89 - Other specified abnormal findings of blood chemistry, Z98.84 - Bariatric surgery status Medications: New clotrimazole 1% (Antifungal (clotrimazole)) 1 appl topical BID 45 grams 3RF
[2024-10-03 09:01] VITALS: BMI 27.9
== END 2024-10-03 15:04 | disposition home or self-care (01) ==
LOC: HO.HBS 14:23
PROVIDERS: Visit Provider Physician Assistant Surgical
DX: L98.7 Excessive and redundant skin and subcutaneous tissue (principal); Z98.84 Bariatric surgery status
CPT/HCPCS: 99214

== ENCOUNTER 2024-12-06 08:30 | Outpatient (AMB) | payer OTHER, SELFPAY ==
--- NOTE | 2024-12-06 08:21 | MHC.OFFVISWM ---
VS Expanded 12/06/24 08:28 Height 5 ft 7 in Weight 173 lb 8 oz BMI 27.2 Body Fat % 33 Fat Free Mass 116.4 Visceral Fat Rating 11 Body Water % 46 Muscle Mass/Score 109.4 Basal Metabolic Rate/Score 1,510 Intake Visit Reasons: (TV) PO LSG 10/20/23 [employer] Pract[employer] Required: No Allergies No Known Allergies Allergy (Verified 07/29/24 08:57) Medication List - Last Reconciled 12/06/24 by LESLIE Camacho acetazolamide 250 mg PO BID calcium citrate-vitamin D3 315 mg-5 mcg (200 unit) (Calcium Citrate + D) 1 tab PO BID clotrimazole 1% (Antifungal (clotrimazole)) 1 appl topical BID inulin (Fiber Gummies) 2 grams PO BID tretinoin 0.025% 1 appl topical BEDTIME HPI Comments Details: This?a?29?yo female who is s/p LSG without hiatal hernia repair on?10/20/2023. Presents for 1 year 1 month post op visit. Weight today is 173.8 pounds, with a BMI of 27.2. There has been a 190.2 pound weight loss,(initial weight 364 pounds) since starting the program on 04/21/2023 reflecting a 52.2 % total body weight loss and a weight loss of 153.3 pounds since surgery (operative weight 327.1 pounds) reflecting a 46.8 % TBWL since surgery. No complaints of nausea, emesis, abdominal pain or reflux. Reports infrequent but normal bowel movements every 1-2 days and uses stool softeners regularly. Using [employer]-Life MVI daily and Andrew + D. She is complaining of excess skin of her stomach and arms. She would get rash to her stomach under the skin fold and at the umbilicus. She would have discomfort, pain and itch. She has also noticed increased odor requiring additional hygiene. She has tried to use OTC creams, but min effect. She was Rx antifungal cream at her last visit. She states she would get a rash 4 times per month. It improves with the cream, but recurrs. She has been very busy at work and she was unable to exercise. She is walking more but not burning necessary calories. She is in a new job position and hopes to be done by next week. She is not consistent with the meal plan as she has not been preparing her meals. wakes at 7-8 am, bed at 11 pm Present meal plan includes: Fair life 26 g ready to drink shake or Premier protein powder 1 scoop mixed in black coffee shake. quest bar Meal with 6 forks protein and 8 forks vegetables another bar or bulgarian yogurt Drinking 55-68 oz water ? Exercise routine includes: PF Any post op complications: none ROJAS: never DM: never HTN: never Hyperlipidemia: never GERD:?0-5 scale ??0 = no symptoms ??1 = symptoms noticeable but not bothersome 2 =symptoms bothersome but not daily ? 3 = symptoms bothersome and daily 4 = symptoms affect daily activities 5 = symptoms are incapacitating, unable to do daily activities ? How bad is the heartburn: 0 ? Heartburn while lying down: 0 ? Heartburn when standing up: 0 ? Heartburn after meals: 0 ? Does heartburn change your diet: 0 ? Does heartburn wake you up from sleep: 0 ? Do you have difficulty swallowin ? Do you have pain with swallowin ? If you take medicine for your reflux, does this affect your daily life: 0 Satisfaction with present condition - satisfied or not satisfied: not satisfied, wants to lose more weight PFSH Medical History Asthma Surgical History S/P laparoscopic sleeve gastrectomy History of esophagogastroduodenoscopy (EGD) Hx of wisdom tooth extraction Family History Mother Thyroid disease Father Cancer High cholesterol Hypertension Diabetes Sister No problems noted. Sister No problems noted. Brother Cirrhosis Social History Household Members: None Housing: Apartment Are you a primary customer care team coach to a significant other at home: No Do you presently have visiting nurse or other home services: No Alcohol intake: current Alcohol intake frequency: does not drink Patient Tobacco Use Status: Never used Tobacco Assessment & Plan Assessment & Plan (1) S/P laparoscopic sleeve gastrectomy: Code(s): Z98.84 - Bariatric surgery status Category: Surgical Plan: Fair life 26 g ready to drink shake or Premier protein powder 1 scoop mixed in black coffee shake. 9-11 am quest bar (1/2 if having fairlife) 1-3 pm Meal with 6 forks protein and 8 forks vegetables 6 pm bulgarian yogurt 8-9 pm Reminded to get yearly labs done which were ordered at last visit. Encouraged to return to the gym. Return to clinic 2 months (2) Excess skin: Code(s): L98.7 - Excessive and redundant skin and subcutaneous tissue Category: Medical Plan: Improved with clotrimazole topical cream. She continues to have recurrent rash despite this. If this continues, we will add topical steroid. If she continues to have recurrence despite maximal treatment with barrier, prescriptive medications, we will submit to her insurance for medically approved skin removal surgery given greater than 190 lb weight loss.
[2024-12-06 08:28] VITALS: BMI 27.2
== END 2024-12-06 08:54 | disposition home or self-care (01) ==
LOC: HO.HBS 08:42
PROVIDERS: Visit Provider Physician Assistant Surgical
DX: L98.7 Excessive and redundant skin and subcutaneous tissue (principal); Z98.84 Bariatric surgery status
CPT/HCPCS: 98012

== ENCOUNTER 2025-02-21 07:48 | Outpatient (REF) | payer OTHER, SELFPAY ==
[2025-02-21 08:13] LABS: MANUAL DIFF FLAG NO
[2025-02-21 08:32] LABS: Basophils Percent Auto 0.5 % (0-2); Eosinophils Absolute Auto 0.1 X10*3/uL (0.0-0.4); Eosinophils Percent Auto 1.3 % (0-4); Hematocrit 41.5 % (37.0-47.0); Hemoglobin 13.7 g/dl (12.0-16.0); Imm Gran Abs Auto 0.01 X10*3/uL (0.00-0.03); Imm Gran Pct Auto 0.2 % (0.0-0.4); Lymphocytes Absolute Auto 2.4 X10*3/uL (1.2-4.9); Lymphocytes Percent Auto 43.5 % (20-40); Mean Corpuscular Hemoglobin 27.5 pg (27.0-33.0); Mean Corpuscular Volume 83.2 fL (80.0-98.0); Mean Platelet Volume 9.3 fL (9.4-12.3); Monocytes Absolute Auto 0.4 X10*3/uL (0.1-1.2); Monocytes Percent Auto 6.5 % (2-11); Neutrophils Absolute Auto 2.6 x10*3/uL (2.0-8.3); Platelet Count 324 X10*3/uL (160-400); Red Blood Count 4.99 X10*6/uL (4.20-5.50); Red Cell Distribution Width 13.8 % (11.0-16.0); White Blood Count 5.5 X10*3/uL (4.8-10.8)
[2025-02-21 09:25] LABS: Anion Gap 13 (12-20)
[2025-02-21 09:27] LABS: Estimated Average Glucose 97 mg/dL; Hemoglobin A1C 113.4856 umol/L; Total Hemoglobin (HGBA1C) 3595.8719 umol/L
[2025-02-21 09:30] LABS: Alanine Aminotransferase 40 U/L (0-31); Albumin Level 4.3 g/dL (3.5-5.0); Alkaline Phosphatase 97 U/L (39-117); Aspartate Amino Transferase 28 U/L (5-31); Bilirubin Total 0.5 mg/dL (0.0-1.0); Blood Urea Nitrogen 15 mg/dL (9-16); C Reactive Protein < 0.04 mg/dL (< or = 0.50); Calcium 9.5 mg/dL (8.4-10.2); Carbon Dioxide 22 mmol/L (22-29); Chloride 107 mmol/L (96-108); Cholesterol 196 mg/dL (<200); Estimated Glomerular Filt Rate > 60; Glucose Random 91 mg/dL (60-115); HDL Cholesterol 49 mg/dL (>40); Iron 74 mcg/dL (30-160); LDL Cholesterol Calculated 131 mg/dL (<100); Percent Iron Saturation 24 % (15-50); Sodium 138 mmol/L (135-145); Total Iron Binding Capacity 310 mcg/dL (228-428); Total Protein 7.5 g/dL (6.5-8.0); Triglycerides 80 mg/dL (<150); Unsaturated Iron Binding 236 ug/dL
[2025-02-21 10:03] LABS: Folate 14.6 ng/mL (> or = 4.0); Vitamin B12 849 pg/mL (200-900)
[2025-02-21 10:05] LABS: Ferritin 76 ng/mL (10-122); TSH reflex Free T4 2.44 uIU/mL (0.32-4.0); Vitamin D 25-OH Total 48.6 ng/mL (>30)
[2025-02-21 11:07] LABS: Insulin 5 uU/mL (2-29)
[2025-02-23 23:28] LABS: Zinc 93 mcg/dL (60-130)
[2025-02-26 20:18] LABS: Vitamin A 57 mcg/dL (38-98); Vitamin B1 36 nmol/L (8-30)
== END 2025-02-21 07:49 | disposition home or self-care (01) ==
LOC: HO.LAB 07:48
PROVIDERS: Visit Provider Physician Assistant Surgical
DX: E60 Dietary zinc deficiency (principal); Z98.84 Bariatric surgery status; K74.00 Hepatic fibrosis, unspecified; R79.89 Other specified abnormal findings of blood chemistry; K76.0 Fatty (change of) liver, not elsewhere classified
CPT/HCPCS: 36415; 80053; 80061; 82306; 82607; 82728; 82746; 83036; 83525; 83540; 84425; 84443; 84590; 84630; 85025; 86140

== ENCOUNTER 2025-02-22 11:11 | Outpatient (AMB) | payer OTHER, SELFPAY ==
--- NOTE | 2025-02-22 09:18 | MHC.OFFVISWM ---
VS Expanded 02/22/25 09:20 Height 5 ft 7 in Weight 172 lb BMI 26.9 Body Fat % 32.5 Fat Free Mass 116.2 Visceral Fat Rating 10 Body Water % 46.4 Muscle Mass/Score 109.2 Basal Metabolic Rate/Score 1,507 Intake Visit Reasons: (TV) PO LSG 10/20/23 Allergies No Known Allergies Allergy (Verified 07/29/24 08:57) HPI Comments Details: This?a?29?yo female who is s/p LSG without hiatal hernia repair on?10/20/2023. Presents for 1 year 4 month post op visit. Weight today is 172 pounds, with a BMI of 26.9. There has been a 192 pound weight loss,(initial weight 364 pounds) since starting the program on 04/21/2023 reflecting a 52.7 % total body weight loss and a weight loss of 155.1 pounds since surgery (operative weight 327.1 pounds) reflecting a 47.4 % TBWL since surgery. No complaints of nausea, emesis, abdominal pain or reflux. Reports infrequent but normal bowel movements every 1-2 days and uses stool softeners regularly. Using [employer]Life MVI daily and Andrew + D. She is complaining of excess skin of her stomach and arms. She would get rash to her stomach under the skin fold and at the umbilicus. She would have discomfort, pain and itch. She has also noticed increased odor requiring additional hygiene. She has tried to use OTC creams, but min effect. She was Rx antifungal cream at her last visit. She states she would get a rash 4 times per month. It improves with the cream, but recurrs. She is also having difficulty with excess skin of her arms causing odor and difficulty with clothing fitting properly. She denies any rashes. She has been very busy at work and she was unable to exercise. She is following the meal plan, but not exercising much. wakes at 7-8 am, bed at 11 pm Present meal plan includes: Fair life 26 g ready to drink shake or Premier protein powder 1 scoop mixed in black coffee shake. 9-11 am quest bar (1/2 if having fairlife) 1-3 pm Meal with 6 forks protein and 8 forks vegetables 6 pm vietnamese yogurt 8-9 pm Drinking 55-68 oz water ? Exercise routine includes: walking outside daily 30 min [facility] Medical History Asthma Surgical History S/P laparoscopic sleeve gastrectomy History of esophagogastroduodenoscopy (EGD) Hx of wisdom tooth extraction Family History Mother Thyroid disease Father Cancer High cholesterol Hypertension Diabetes Sister No problems noted. Sister No problems noted. Brother Cirrhosis Social History Household Members: None Housing: Apartment Are you a primary manager critical care to a significant other at home: No Do you presently have visiting nurse or other home services: No Alcohol intake: current Alcohol intake frequency: does not drink Patient Tobacco Use Status: Never used Tobacco Telehealth Telehealth Telehealth Platform: Telephone Location of provider rendering services: practice address Location of patient: address on file Patient Identification confirmed using: Name, : Yes Telehealth method: voice only Patient verbally consented to treatment: Yes Patient verbally consented to billing insurance company: Yes Patient informed of any privacy concerns related to visit: Yes Minutes spent on Phone/Video with Pt.: 15 Assessment & Plan Assessment & Plan (1) S/P laparoscopic sleeve gastrectomy: Code(s): Z98.84 - Bariatric surgery status Category: Surgical Plan: Patient is doing fairly well, she has lost over 50% of her total body weight since initiating the weight management program. She has been very busy with her job and has been unable to exercise as much as she would like however she is sticking to the meal plan. I have encouraged her to resume time at the gym as she is able. We will have her return to the office for her 18 month follow-up appointment. She did get labs done just recently and no significant dyscrasias. Encouraged to continue to send weight is weekly and text with any questions or concerns. (2) Excess skin: Code(s): L98.7 - Excessive and redundant skin and subcutaneous tissue Category: Medical Plan: Given her 192 lb weight loss or 52.7% total body weight loss since initiating the program, she has excess skin of her abdomen and arms. This has caused recurrent rash requiring prescriptive antifungal medications. She additionally has a negative impact on her activities of daily living requiring increased hygiene and close do not fit very well. She has noticed odor, pain, itching when she would get the rash. She is going to need medically necessary skin removal surgery. We will have her return to the office as discussed above in April for her 18 month postop appointment. Consideration for medically necessary skin removal surgery.
[2025-02-22 09:20] VITALS: BMI 26.9
== END 2025-02-22 11:40 | disposition home or self-care (01) ==
LOC: HO.HBS 11:11
PROVIDERS: Visit Provider Physician Assistant Surgical
DX: L98.7 Excessive and redundant skin and subcutaneous tissue (principal); Z98.84 Bariatric surgery status
CPT/HCPCS: 98013

== ENCOUNTER 2025-09-11 11:22 | Outpatient (AMB) | payer OTHER, SELFPAY ==
--- NOTE | 2025-09-11 11:11 | A.OFFVIS_ITS ---
VS Expanded 09/11/25 11:15 Height 5 ft 7 in Weight 165 lb 2 oz BMI 25.9 Intake Visit Reasons: (TV) PO LSG 10/20/23 Allergies No Known Allergies Allergy (Verified 07/29/24 08:57) HPI Comments Details: This a 29 yo female who is s/p LSG without hiatal hernia repair on 10/20/2023. Presents for 1 year 11 month post op visit. Weight today is 172 pounds, with a BMI of 26.9. Initial weight 364 pounds starting the program on 04/21/2023 and operative weight 327.1 pounds. No complaints of nausea, emesis, abdominal pain or reflux. Reports infrequent but normal bowel movements every 1-2 days and uses stool softeners regularly. Using [employer] MVI daily and Andrew + D. She is complaining of excess skin of her abdomen and arms. She would get rash to her belly under the skin fold and at the umbilicus. She would have discomfort, pain and itch. She has also noticed increased odor requiring additional hygiene. She has tried to use OTC creams, but min effect. She was Rx antifungal cream at her last visit. She states she would get a rash 4 times per month. It improves with the cream, but recurrs. The excess skin gets pinched when she bends over which is uncomfortable. She is also having difficulty with excess skin of her arms causing odor due to excess skin folds and sweat/moisture getting trapped here. Has to clean more frequently to prevent this. She has difficulty with clothing fitting properly- needs sleeves that can accommodate the volume of the excess skin. She finds that reaching overhead is difficult and uncomfortable due to the weight of it. She has been very busy at work and she was unable to exercise. She is following the meal plan, but not exercising much. wakes at 7-8 am, bed at 11 pm Present meal plan includes: Fair life 26 g ready to drink shake or Premier protein powder 1 scoop mixed in black coffee shake. 9-11 am quest bar (1/2 if having fairlife) 1-3 pm Meal with 6 forks protein and 8 forks vegetables 6 pm scottish yogurt 8-9 pm Drinking 55-68 oz water sometimes will have meals 3x/day, believes she gets enough protein there Exercise routine includes: walking outside daily 30 min [facility] Medical History Asthma Surgical History S/P laparoscopic sleeve gastrectomy History of esophagogastroduodenoscopy (EGD) Hx of wisdom tooth extraction Family History Mother Thyroid disease Father Cancer High cholesterol Hypertension Diabetes Sister No problems noted. Sister No problems noted. Brother Cirrhosis Social History Household Members: None Housing: Apartment Are you a primary career services representative to a significant other at home: No Do you presently have visiting nurse or other home services: No Alcohol intake: current Alcohol intake frequency: does not drink Patient Tobacco Use Status: Never used Tobacco Telehealth Telehealth Telehealth Platform: Telephone Location of provider rendering services: practice address Location of patient: address on file Patient Identification confirmed using: Name, : Yes Telehealth method: voice only Patient verbally consented to treatment: Yes Patient verbally consented to billing insurance company: Yes Patient informed of any privacy concerns related to visit: Yes Minutes spent on Phone/Video with Pt.: 15 Assessment & Plan Assessment & Plan (1) S/P laparoscopic sleeve gastrectomy: Code(s): Z98.84 - Bariatric surgery status Category: Surgical (2) Overweight: Code(s): E66.3 - Overweight Category: Medical (3) Excess skin: Code(s): L98.7 - Excessive and redundant skin and subcutaneous tissue Category: Medical Plan We discussed that pt's meal plan should include more high protein items instead of eating 3 meals a day as it will likely be difficult to meet protein goals that way and she would be at risk for weight regain. She does have access to [employer] [facility] so I encouraged her to explore this for a solid meal plan. She recognizes that she is not exercising to goal. Given her almost 200 lb weight loss and >50% total body weight loss since initiating the program, she has excess skin of her abdomen and arms. This has caused recurrent rash requiring prescriptive antifungal medications. She additionally has a negative impact on her activities of daily living requiring increased hygiene and close do not fit very well. She has noticed odor, pain, itching when she would get the rash. She would benefit from skin removal surgery for definitive management. RTC in January in person. At that time can take photos of excess skin. 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
[2025-09-11 11:15] VITALS: BMI 25.9
== END 2025-09-11 11:30 | disposition home or self-care (01) ==
LOC: HO.HBS 11:22
PROVIDERS: Visit Provider Physician Assistant Surgical
DX: E66.3 Overweight (principal); Z98.84 Bariatric surgery status; L98.7 Excessive and redundant skin and subcutaneous tissue
CPT/HCPCS: 99214